=== PATIENT | male | born 1950 | race Caucasian/White ===

== ENCOUNTER 2017-04-18 11:49 | Inpatient (IN) | payer OTHER ==
[~2017-04-18] VITALS: Ht 177.8 cm; Wt 120.3 kg
[2017-04-18] MEDS ORDERED: SODIUM CHLORIDE 0.9% 1000ML 2,000 ML IV STA (12:09)
[2017-04-18] MEDS ORDERED: ONDANSETRON INJ 2 MG/ML 2 ML VIAL IV STA (12:09)
[2017-04-18] MEDS ORDERED: KETOROLAC TROMETHAMINE 30 MG/ML VIAL IV STA (12:12)
[2017-04-18 12:37] LABS: HEMATOCRIT 39.5 % (42-52); MEAN CELL VOLUME 86.2 fL (80-100); MEAN CORPUSCULAR HEMOGLOBIN 29.7 pg (25-34); MEAN CORPUSCULAR HGB CONC 34.4 g/dl (32-36); MEAN PLATELET VOLUME 11.1 fL (7.4-10.4); RED BLOOD COUNT 4.58 M/uL (4.7-6.1); WHITE BLOOD COUNT 3.78 K/uL (4.8-10.8)
[2017-04-18 12:38] LABS: URINE APPEARANCE CLEAR (CLEAR); URINE BILIRUBIN NEG (NEG); URINE COLOR DK YELLOW; URINE NITRITE NEG (NEG); URINE SPECIFIC GRAVITY 1.038 (1.000-1.030); UROBILINOGEN NEG (NEG)
--- NOTE | 2017-04-18 12:49 | DIAGNOSTIC IMAGING REPORT ---
HEAD WITHOUT CONTRAST (CT) CLINICAL HISTORY: 66 years-old Male with KAUR. Acute headache with cough and dizziness. TECHNIQUE: Multiple axial CT images of the head were obtained without contrast. A dose lowering technique was utilized adhering to the principles of ALARA. CT DOSE: 537.48 mGy.cm COMPARISON: None. FINDINGS: No acute intracranial hemorrhage, midline shift, intracranial mass, hydrocephalus, territorial ischemia or abnormal extra-axial collection. Mild atrophy. Subtle Ill-defined areas of low attenuation within the periventricular white matter suggests mild chronic microvascular ischemic changes. The calvarium is intact. The paranasal sinuses, mastoid air cells, and middle ear cavities are clear. IMPRESSION: No acute intracranial abnormality. The above report was generated using voice recognition software. It may contain grammatical, syntax or spelling errors. Electronically signed by: Nikunj Caruso M.D. 04/18/2017 12:48 PM Dictated Date/Time: 04/18/2017 12:45 PM
[2017-04-18 12:50] LABS: BUN/CREATININE RATIO 13.3 (10-20); CALCIUM 8.5 mg/dl (8.5-10.1); CREATININE 1.03 mg/dl (0.60-1.40); POTASSIUM 3.8 mmol/L (3.5-5.1)
[2017-04-18 12:57] LABS: MANUAL MICROSCOPIC REQUIRED? NO; REVIEW REQ? YES
[2017-04-18 13:09] LABS: ZZUR CULT IF INDIC CLEAN CATCH NO
--- NOTE | 2017-04-18 13:18 | DIAGNOSTIC IMAGING REPORT ---
CHEST 2 VIEWS ROUTINE HISTORY: 66 years-old Male cough acute cough with headache COMPARISON: None available TECHNIQUE: PA and lateral views of the chest FINDINGS: Cardiac silhouette is mildly enlarged. No overt pulmonary edema. There is no pneumothorax or large pleural effusion. Subsegmental consolidation of the inferior segment lingula is noted. Bones of the chest are grossly intact. There are degenerative changes of the shoulders and spine. IMPRESSION: Subsegmental alveolar opacities of the inferior segment lingula are suspicious for pneumonia or atelectasis. The lungs are otherwise clear. The above report was generated using voice recognition software. It may contain grammatical, syntax or spelling errors. Electronically signed by: Nikunj Caruso M.D. 04/18/2017 1:17 PM Dictated Date/Time: 04/18/2017 1:15 PM
[2017-04-18 13:25] LABS: PLATELET COUNT 75 K/uL (130-400)
[2017-04-18] MEDS ORDERED: GLUC100014 PO (13:29)
[2017-04-18] MEDS ORDERED: AMLO-110 PO (13:29)
[2017-04-18] MEDS ORDERED: LISI20TA3 PO (13:29)
[2017-04-18] MEDS ORDERED: NAPR1TAB9 PO (13:29)
[2017-04-18] MEDS ORDERED: CYAN10004 PO (13:29)
[2017-04-18] MEDS ORDERED: PYRI100T4 PO (13:29)
[2017-04-18] MEDS ORDERED: ASPI81TA28 PO (13:29)
[2017-04-18] MEDS ORDERED: OMEG10007 PO (13:29)
[2017-04-18] MEDS ORDERED: AMOX875T PO (13:29)
[2017-04-18] MEDS ORDERED: LEVAQUIN 750MG / 150ML D5W IV STA (13:37)
[2017-04-18 13:40] LABS: IG% 0.5 %; LYMPH % 4.8 %; LYMPH ABS # 0.18 K/uL (1.2-3.4); MONO % 3.4 %; NEUT % 91.3 %
[2017-04-18 13:59] LABS: COMPLETE YES; LARGE PLATELETS 1+; PLT ESTIMATE DECREASED
[2017-04-18] MEDS ORDERED: DOXYCYCLINE IV 100 MG in DEXTROSE 5% 100ML 100 ML IV SCH (14:00)
[2017-04-18] MEDS ORDERED: ONDANSETRON INJ 2 MG/ML 2 ML VIAL IV PRN (14:45)
[2017-04-18] MEDS ORDERED: POLYETHYLENE (MIRALAX) 17 GM PACK PO PRN (14:45)
--- NOTE | 2017-04-18 15:09 | History and Physical ---
History & Physical Date & Time of Service: Apr 18, 2017 at 14:44 Chief Complaint: Uncontrollable Shaking,Severe Headache Primary Care Physician: Aftab Cortez M.D. History of Present Illness Source: patient, spouse, hospital records The patient is a 66 yo M with HTN who presents with reports of a persistent headache x 2 days and shaking chills overnight. He reports that his pulled a tick off of him about 7-10 days ago and he had gone hunting that same day which was likely his exposure as he feels he would have noticed something. He hunts frequently. He separately reports a cough for 3 weeks now and significant fatigue even prior to the tick bite. He denies any myalgia or arthralgia and although there was an initial site of erythema he did not develop a rash. He had some nausea in the last few days but no vomiting and is tolerating PO without difficulty. He otherwise denies any other major medical problems and had an elective hernia repair in July of this year. He gets his care in [place]. Since arriving to the ER he has been given doxycycline, Levaquin, 2L NS, Toradol and Zofran and states that he feels much better already. He is not ill-appearing. Dr. Haynes from the ER states that he spoke with the pathologist who saw an Anaplasma inclusion body on peripheral smear. Past Medical/Surgical History Medical Problems: (1) HTN (hypertension) Status: Chronic Surgical Problems: (1) S/P herniorrhaphy Status: Chronic Family History FH: HTN (hypertension) FATHER FH: diabetes mellitus MOTHER Social History Smoking Status: Never Smoker Smokeless Tobacco Use: Yes Alcohol Use: occasionally Drug Use: none Marital Status: Housing status: lives with significant other Occupational Status: retired Immunizations History of Influenza Vaccine: Unknown History of Tetanus Vaccine?: Unknown History of Pneumococcal: Unknown History of Hepatitis B Vaccine: Unknown Multi-Drug Resistant Organisms History of MDRO: No Allergies Coded Allergies: No Known Allergies (Unverified , 04/18/17) Home Medications Scheduled Amlodipine (Norvasc), 5 MG PO QAM Amoxicillin & Pot Clavulanate (Augmentin 875-125 mg), 1 TAB PO Q12 Lisinopril (Prinivil), 20 MG PO QAM Scheduled PRN Naproxen (Aleve), 220 MG PO UD PRN for Pain Review of Systems At least ten systems were reviewed and negative except as indicated in HPI. Physical Exam Vital Signs Date Time Temp Pulse Resp B/P (MAP) Pulse Ox O2 Delivery O2 Flow Rate FiO2 04/18/17 13:42 76 18 115/73 97 04/18/17 11:55 37.2 91 16 140/72 96 Room Air General Appearance: no apparent distress, + obese Head: normocephalic, atraumatic Eyes: normal inspection, sclerae normal ENT: hearing grossly normal, pharynx normal Neck: trachea midline Respiratory/Chest: lungs clear, normal breath sounds, no respiratory distress Cardiovascular: regular rate, rhythm, no edema, no gallop, no JVD, no murmur Abdomen/GI: normal bowel sounds, non tender, soft Back: normal inspection Extremities/Musculoskelatal: normal inspection, no pedal edema, normal range of motion, + pertinent finding (5/5 strength in UE/LE and housekeeping/laundry supervisor strength) Neurologic/Psych: no motor/sensory deficits, alert, normal mood/affect, oriented x 3, + pertinent finding (CN 2-12 grossly intact) Skin: normal color, warm/dry, no rash, + pertinent finding (small scab with no surrounding erythema present at prior tick bite location. ) Diagnostics Laboratory Results 04/18/17 12:19 Red Blood Count 4.58, Mean Corpuscular Volume 86.2, Mean Corpuscular Hemoglobin 29.7, Mean Corpuscular Hemoglobin Concent 34.4, Mean Platelet Volume 11.1, Neutrophils (%) (Auto) 91.3, Lymphocytes (%) (Auto) 4.8, Monocytes (%) (Auto) 3.4, Eosinophils (%) (Auto) 0.0, Basophils (%) (Auto) 0.0, Neutrophils # (Auto) 3.45, Lymphocytes # (Auto) 0.18, Monocytes # (Auto) 0.13, Eosinophils # (Auto) 0.00, Basophils # (Auto) 0.00 04/18/17 12:19 Test 04/18/17 12:19 White Blood Count 3.78 K/uL (4.8-10.8) Red Blood Count 4.58 M/uL (4.7-6.1) Hemoglobin 13.6 g/dL (14.0-18.0) Hematocrit 39.5 % (42-52) Mean Corpuscular Volume 86.2 fL (80-100) Mean Corpuscular Hemoglobin 29.7 pg (25-34) Mean Corpuscular Hemoglobin Concent 34.4 g/dl (32-36) Platelet Count 75 K/uL (130-400) Mean Platelet Volume 11.1 fL (7.4-10.4) Neutrophils (%) (Auto) 91.3 % Lymphocytes (%) (Auto) 4.8 % Monocytes (%) (Auto) 3.4 % Eosinophils (%) (Auto) 0.0 % Basophils (%) (Auto) 0.0 % Neutrophils # (Auto) 3.45 K/uL (1.4-6.5) Lymphocytes # (Auto) 0.18 K/uL (1.2-3.4) Monocytes # (Auto) 0.13 K/uL (0.11-0.59) Eosinophils # (Auto) 0.00 K/uL (0-0.5) Basophils # (Auto) 0.00 K/uL (0-0.2) RDW Standard Deviation 39.9 fL (36.4-46.3) RDW Coefficient of Variation 12.6 % (11.5-14.5) Immature Granulocyte % (Auto) 0.5 % Immature Granulocyte # (Auto) 0.02 K/uL (0.00-0.02) Platelet Estimate DECREASED Large Platelets 1+ Urine Color DK YELLOW Urine Appearance CLEAR (CLEAR) Urine pH 5.0 (4.5-7.5) Urine Specific [place] 1.038 (1.000-1.030) Urine Protein 2+ (NEG) Urine Glucose (UA) 1+ (NEG) Urine Ketones TRACE (NEG) Urine Occult Blood NEG (NEG) Urine Nitrite NEG (NEG) Urine Bilirubin NEG (NEG) Urine Urobilinogen NEG (NEG) Urine Leukocyte Esterase NEG (NEG) Urine WBC (Auto) 1-5 /hpf (0-5) Urine RBC (Auto) 0-4 /hpf (0-4) Urine Hyaline Casts (Auto) 1-5 /lpf (0-5) Urine Epithelial Cells (Auto) 10-20 /lpf (0-5) Urine Bacteria (Auto) NEG (NEG) Urine Pathogenic Casts /lpf (0) Urine Yeast (Auto) (NONE PRSENT) Anion Gap 5.0 mmol/L (3-11) Est Creatinine Clear Calc Drug Dose 90.5 ml/min Estimated GFR () 86.7 Estimated GFR (Non- 74.8 BUN/Creatinine Ratio 13.3 (10-20) Calcium Level 8.5 mg/dl (8.5-10.1) Total Bilirubin 0.4 mg/dl (0.2-1) Direct Bilirubin 0.1 mg/dl (0-0.2) Aspartate Amino Transf (AST/SGOT) 69 U/L (15-37) Alanine Aminotransferase (ALT/SGPT) 68 U/L (12-78) Alkaline Phosphatase 64 U/L (45-117) Total Protein 6.8 gm/dl (6.4-8.2) Albumin 3.3 gm/dl (3.4-5.0) Lipase 227 U/L (73-393) Influenza Type A Antigen Neg for Influ A (NEG) Influenza Type B Antigen Neg for Influ B (NEG) Results Past 24 Hours Test 04/18/17 12:19 Range/Units White Blood Count 3.78 4.8-10.8 K/uL Red Blood Count 4.58 4.7-6.1 M/uL Hemoglobin 13.6 14.0-18.0 g/dL Hematocrit 39.5 42-52 % Mean Corpuscular Volume 86.2 80-100 fL Mean Corpuscular Hemoglobin 29.7 25-34 pg Mean Corpuscular Hemoglobin Concent 34.4 32-36 g/dl Platelet Count 75 130-400 K/uL Mean Platelet Volume 11.1 7.4-10.4 fL Neutrophils (%) (Auto) 91.3 % Lymphocytes (%) (Auto) 4.8 % Monocytes (%) (Auto) 3.4 % Eosinophils (%) (Auto) 0.0 % Basophils (%) (Auto) 0.0 % Neutrophils # (Auto) 3.45 1.4-6.5 K/uL Lymphocytes # (Auto) 0.18 1.2-3.4 K/uL Monocytes # (Auto) 0.13 0.11-0.59 K/uL Eosinophils # (Auto) 0.00 0-0.5 K/uL Basophils # (Auto) 0.00 0-0.2 K/uL RDW Standard Deviation 39.9 36.4-46.3 fL RDW Coefficient of Variation 12.6 11.5-14.5 % Immature Granulocyte % (Auto) 0.5 % Immature Granulocyte # (Auto) 0.02 0.00-0.02 K/uL Platelet Estimate DECREASED Large Platelets 1+ Urine Color DK YELLOW Urine Appearance CLEAR CLEAR Urine pH 5.0 4.5-7.5 Urine Specific [place] 1.038 1.000-1.030 Urine Protein 2+ NEG Urine Glucose (UA) 1+ NEG Urine Ketones TRACE NEG Urine Occult Blood NEG NEG Urine Nitrite NEG NEG Urine Bilirubin NEG NEG Urine Urobilinogen NEG NEG Urine Leukocyte Esterase NEG NEG Urine WBC (Auto) 1-5 0-5 /hpf Urine RBC (Auto) 0-4 0-4 /hpf Urine Hyaline Casts (Auto) 1-5 0-5 /lpf Urine Epithelial Cells (Auto) 10-20 0-5 /lpf Urine Bacteria (Auto) NEG NEG Urine Pathogenic Casts 0 /lpf Urine Yeast (Auto) NONE PRSENT Sodium Level 127 136-145 mmol/L Potassium Level 3.8 3.5-5.1 mmol/L Chloride Level 98 98-107 mmol/L Carbon Dioxide Level 24 21-32 mmol/L Anion Gap 5.0 3-11 mmol/L Blood Urea Nitrogen 14 7-18 mg/dl Creatinine 1.03 0.60-1.40 mg/dl Est Creatinine Clear Calc Drug Dose 90.5 ml/min Estimated GFR () 86.7 Estimated GFR (Non- 74.8 BUN/Creatinine Ratio 13.3 10-20 Random Glucose 150 70-99 mg/dl Calcium Level 8.5 8.5-10.1 mg/dl Total Bilirubin 0.4 0.2-1 mg/dl Direct Bilirubin 0.1 0-0.2 mg/dl Aspartate Amino Transf (AST/SGOT) 69 15-37 U/L Alanine Aminotransferase (ALT/SGPT) 68 12-78 U/L Alkaline Phosphatase 64 45-117 U/L Total Protein 6.8 6.4-8.2 gm/dl Albumin 3.3 3.4-5.0 gm/dl Lipase 227 73-393 U/L Influenza Type A Antigen Neg for Influ A NEG Influenza Type B Antigen Neg for Influ B NEG Diagnostic Radiology CHEST 2 VIEWS ROUTINE HISTORY: 66 years-old Male cough acute cough with headache COMPARISON: None available TECHNIQUE: PA and lateral views of the chest FINDINGS: Cardiac silhouette is mildly enlarged. No overt pulmonary edema. There is no pneumothorax or large pleural effusion. Subsegmental consolidation of the inferior segment lingula is noted. Bones of the chest are grossly intact. There are degenerative changes of the shoulders and spine. IMPRESSION: Subsegmental alveolar opacities of the inferior segment lingula are suspicious for pneumonia or atelectasis. The lungs are otherwise clear. HEAD WITHOUT CONTRAST (CT) CLINICAL HISTORY: 66 years-old Male with KAUR. Acute headache with cough and dizziness. TECHNIQUE: Multiple axial CT images of the head were obtained without contrast. A dose lowering technique was utilized adhering to the principles of ALARA. CT DOSE: 537.48 mGy.cm COMPARISON: None. FINDINGS: No acute intracranial hemorrhage, midline shift, intracranial mass, hydrocephalus, territorial ischemia or abnormal extra-axial collection. Mild atrophy. Subtle Ill-defined areas of low attenuation within the periventricular white matter suggests mild chronic microvascular ischemic changes. The calvarium is intact. The paranasal sinuses, mastoid air cells, and middle ear cavities are clear. IMPRESSION: No acute intracranial abnormality. EKG EKG pending Impression Assessment and Plan 66 yoM presents with collection of symptoms consistent with tick-borne illness and CAP 1. CAP-pt describes a cough for several weeks along with fatigue (prior to tick bite) and has lingular infiltrate on xray. Levaquin started. Blood cultures, sputum cultures. No hypoxia. 2. Rickettsial infection consistent with Anaplasma-pt describes a tick exposure in the last 7-10 days and presents with shaking chills, headache, malaise, nausea, cough with labs revealing thrombocytopenia and leukopenia along with peripheral smear findings consistent with Anaplasma. Doxy started and ID consulted. Will likely send for PCR but will review with ID systems security consultant first. Will consider sending tests to check for coinfection, also. 3. HTN-controlled on home meds including lisinopril 20mg daily and Norvasc 5 mg PO daily. DVT proph-contraindicated in setting of thrombocytopenia, SCDs were ordered Full Code Dispo-Med/Surg Abida Jason, DO [facility]ist Level of Care Med/Surg Resuscitation Status FULL RESUSCITATION VTE Prophylaxis VTE Risk Assessment Done? Y/N: Yes Risk Level: Moderate Given or contraindicated: SCD's, Contraindicated
[2017-04-18] MEDS ORDERED: DOXYCYCLINE IV 100 MG in DEXTROSE 5% 100ML 100 ML IV ONE (15:45)
[2017-04-18] MEDS: ACETAMINOPHEN 325 MG TAB PO PRN ×2 (16:30→22:18)
[2017-04-18 17:47] LABS: INR 1.2 (0.9-1.1); PROTHROMBIN TIME (PATIENT) 12.8 SECONDS (9.0-12.0)
[2017-04-18 18:05] LABS: CALCIUM 8.5 mg/dl (8.5-10.1); CREATININE 0.94 mg/dl (0.60-1.40); POTASSIUM 3.8 mmol/L (3.5-5.1)
[2017-04-18 18:22] LABS: LYME DISEASE AB IGG NEG (NEG); LYME DISEASE AB IGM NEG (NEG)
--- NOTE | 2017-04-18 18:38 | EMERGENCY ROOM VISIT NOTE ---
History Report prepared by Marta: Edu Odgen Under the Supervision of: Arline HillO. First contact with patient: 11:58 Chief Complaint: HEADACHE Stated Complaint: UNCONTROLLABLE SHAKING,SEVERE HEADACHE History of Present Illness The patient is a 66 year old male who presents to the Emergency Room with complaints of constant headache for the past two days and feels like his head is full. The patient currently rates his discomfort as an 8/10 in severity. The patient notes that last night he had severe chills and was shaking. He reports that he has pain around his eyes, his mouth is dry, he feels weak, he feels congested, and two days ago he was nauseous. He states that the pain is worsened with coughing. The patient denies any runny nose, sorethroat, chest pain, abdominal pain, vomiting, pain with urination, dizziness, confusion, and any new cough. He additionally notes that he has not been having his normal bowel movements, and he has been urinating less than normal. He additionally notes that he does not have any open cuts or injuries. The patient has a history of hypertension. Pt denies change in vision, fevers, shortness of breath , vomiting, diarrhea, and melena. Source of History: patient Onset: two days ago Position: head Quality: ache, other (fullness) Timing: constant Modifying Factors (Worsening): other (coughing) Associated Symptoms: + chills, + nausea, + weakness, No sorethroat, No cough , No chest pain, No vomiting, No urinary symptoms Note: Associated symptoms: Shaking and pain around his eyes Review of Systems See HPI for pertinent positives & negatives. A total of 10 systems reviewed and were otherwise negative. Past Medical & Surgical Medical Problems: (1) Fever (2) HTN (hypertension) (3) Pneumonia Surgical Problems: (1) S/P herniorrhaphy Social History Smoking Status: Never Smoker Marital Status: single Housing Status: lives alone Occupation Status: retired Current/Historical Medications Scheduled Amlodipine (Norvasc), 5 MG PO QAM Amoxicillin & Pot Clavulanate (Augmentin 875-125 mg), 1 TAB PO Q12 Lisinopril (Prinivil), 20 MG PO QAM Scheduled PRN Naproxen (Aleve), 220 MG PO UD PRN for Pain Allergies Coded Allergies: No Known Allergies (Unverified , 04/18/17) Physical Exam Vital Signs Date Time Temp Pulse Resp B/P (MAP) Pulse Ox O2 Delivery O2 Flow Rate FiO2 04/18/17 13:42 76 18 115/73 97 04/18/17 11:55 37.2 91 16 140/72 96 Room Air Physical Exam GENERAL: Sitting on the edge of the bed, disheveled non-toxic. HEAD: Tenderness over the maxillary sinuses. EARS: TMs boone bilaterally. EYE EXAM: normal conjunctiva. PERRL and EOM's grossly intact. OROPHARYNX: no exudate, no erythema, lips, buccal mucosa, and tongue normal and mucous membranes are dry NECK: supple, no nuchal rigidity, no adenopathy, non-tender LUNGS: Clear to auscultation. Normal chest wall mechanics HEART: no murmurs, S1 normal and S2 normal ABDOMEN: abdomen soft, non-tender, normo-active bowel sounds, no masses, no rebound or guarding. BACK: Back is symmetrical on inspection and there is no deformity, no midline tenderness, no CVA tenderness. SKIN: no rashes and no bruising UPPER EXTREMITIES: upper extremities are grossly normal. LOWER EXTREMITIES: No pitting edema. NEURO EXAM: Normal sensorium, cranial nerves II-XII intact, normal speech, no weakness of arms, no weakness of legs. No drift. Finger to nose intact. Sensation intact. Medical Decision & Procedures ER Provider Diagnostic Interpretation: Radiology results as stated below per my review and the radiologist's interpretation: HEAD WITHOUT CONTRAST (CT) CLINICAL HISTORY: 66 years-old Male with KAUR. Acute headache with cough and dizziness. TECHNIQUE: Multiple axial CT images of the head were obtained without contrast. A dose lowering technique was utilized adhering to the principles of ALARA. CT DOSE: 537.48 mGy.cm COMPARISON: None. FINDINGS: No acute intracranial hemorrhage, midline shift, intracranial mass, hydrocephalus, territorial ischemia or abnormal extra-axial collection. Mild atrophy. Subtle Ill-defined areas of low attenuation within the periventricular white matter suggests mild chronic microvascular ischemic changes. The calvarium is intact. The paranasal sinuses, mastoid air cells, and middle ear cavities are clear. IMPRESSION: No acute intracranial abnormality. The above report was generated using voice recognition software. It may contain grammatical, syntax or spelling errors. Electronically signed by: Nikunj Caruso M.D. 04/18/2017 12:48 PM Dictated Date/Time: 04/18/2017 12:45 PM CHEST 2 VIEWS ROUTINE HISTORY: 66 years-old Male cough acute cough with headache COMPARISON: None available TECHNIQUE: PA and lateral views of the chest FINDINGS: Cardiac silhouette is mildly enlarged. No overt pulmonary edema. There is no pneumothorax or large pleural effusion. Subsegmental consolidation of the inferior segment lingula is noted. Bones of the chest are grossly intact. There are degenerative changes of the shoulders and spine. IMPRESSION: Subsegmental alveolar opacities of the inferior segment lingula are suspicious for pneumonia or atelectasis. The lungs are otherwise clear. The above report was generated using voice recognition software. It may contain grammatical, syntax or spelling errors. Electronically signed by: Nikunj Caruso M.D. 04/18/2017 1:17 PM Dictated Date/Time: 04/18/2017 1:15 PM Laboratory Results 04/18/17 12:19 Red Blood Count 4.58, Mean Corpuscular Volume 86.2, Mean Corpuscular Hemoglobin 29.7, Mean Corpuscular Hemoglobin Concent 34.4, Mean Platelet Volume 11.1, Neutrophils (%) (Auto) 91.3, Lymphocytes (%) (Auto) 4.8, Monocytes (%) (Auto) 3.4, Eosinophils (%) (Auto) 0.0, Basophils (%) (Auto) 0.0, Neutrophils # (Auto) 3.45, Lymphocytes # (Auto) 0.18, Monocytes # (Auto) 0.13, Eosinophils # (Auto) 0.00, Basophils # (Auto) 0.00 Test 04/18/17 12:19 White Blood Count 3.78 K/uL (4.8-10.8) Red Blood Count 4.58 M/uL (4.7-6.1) Hemoglobin 13.6 g/dL (14.0-18.0) Hematocrit 39.5 % (42-52) Mean Corpuscular Volume 86.2 fL (80-100) Mean Corpuscular Hemoglobin 29.7 pg (25-34) Mean Corpuscular Hemoglobin Concent 34.4 g/dl (32-36) Platelet Count 75 K/uL (130-400) Mean Platelet Volume 11.1 fL (7.4-10.4) Neutrophils (%) (Auto) 91.3 % Lymphocytes (%) (Auto) 4.8 % Monocytes (%) (Auto) 3.4 % Eosinophils (%) (Auto) 0.0 % Basophils (%) (Auto) 0.0 % Neutrophils # (Auto) 3.45 K/uL (1.4-6.5) Lymphocytes # (Auto) 0.18 K/uL (1.2-3.4) Monocytes # (Auto) 0.13 K/uL (0.11-0.59) Eosinophils # (Auto) 0.00 K/uL (0-0.5) Basophils # (Auto) 0.00 K/uL (0-0.2) RDW Standard Deviation 39.9 fL (36.4-46.3) RDW Coefficient of Variation 12.6 % (11.5-14.5) Immature Granulocyte % (Auto) 0.5 % Immature Granulocyte # (Auto) 0.02 K/uL (0.00-0.02) Platelet Estimate DECREASED Large Platelets 1+ Urine Color DK YELLOW Urine Appearance CLEAR (CLEAR) Urine pH 5.0 (4.5-7.5) Urine Specific [place] 1.038 (1.000-1.030) Urine Protein 2+ (NEG) Urine Glucose (UA) 1+ (NEG) Urine Ketones TRACE (NEG) Urine Occult Blood NEG (NEG) Urine Nitrite NEG (NEG) Urine Bilirubin NEG (NEG) Urine Urobilinogen NEG (NEG) Urine Leukocyte Esterase NEG (NEG) Urine WBC (Auto) 1-5 /hpf (0-5) Urine RBC (Auto) 0-4 /hpf (0-4) Urine Hyaline Casts (Auto) 1-5 /lpf (0-5) Urine Epithelial Cells (Auto) 10-20 /lpf (0-5) Urine Bacteria (Auto) NEG (NEG) Urine Pathogenic Casts /lpf (0) Urine Yeast (Auto) (NONE PRSENT) Total Bilirubin 0.4 mg/dl (0.2-1) Direct Bilirubin 0.1 mg/dl (0-0.2) Aspartate Amino Transf (AST/SGOT) 69 U/L (15-37) Alanine Aminotransferase (ALT/SGPT) 68 U/L (12-78) Alkaline Phosphatase 64 U/L (45-117) Total Protein 6.8 gm/dl (6.4-8.2) Albumin 3.3 gm/dl (3.4-5.0) Lipase 227 U/L (73-393) Influenza Type A Antigen Neg for Influ A (NEG) Influenza Type B Antigen Neg for Influ B (NEG) Laboratory results per my review. Medications Administered Medications (Trade) Dose Ordered Sig/Reji Route Start Time Stop Time Status Last Admin Dose Admin Sodium Chloride 2,000 ml @ 999 mls/hr Q2H1M STAT IV 04/18/17 12:09 04/18/17 14:09 DC 04/18/17 12:27 999 MLS/HR Ondansetron HCl (Zofran Inj) 4 mg NOW STAT IV 04/18/17 12:09 04/18/17 12:11 DC 04/18/17 12:27 4 MG Ketorolac Tromethamine (Toradol Inj) 10 mg NOW STAT IV 04/18/17 12:12 04/18/17 12:13 DC 04/18/17 12:28 10 MG Levofloxacin (Levaquin / D5W) 750 mg NOW STAT IV 04/18/17 13:37 04/18/17 13:38 DC 04/18/17 13:47 750 MG ED Course ED COURSE: Vital signs were reviewed and showed normal vitals The patients medical record was reviewed The above diagnostic studies were performed and reviewed. ED treatments and interventions as stated above. 1158: The patient was evaluated in room A10. A complete history and physical examination was performed. 1209: Zofran 4mg IV, Sodium Chloride 2000 ml @ 999 mls/hr IV 1212: Toradol 10mg IV 1337: Levofloxacin 750mg IV 1400: Upon reevaluation, the patient is doing well.I discussed my findings with the patient and he understands and agrees with the treatment plan. Based on the patients age, coexisting illnesses, exam and lab findings the decision to treat as an inpatient was made. The patient remained stable while under my care. The patient will be evaluated for further management. 1406: I discussed the patient's case with Jamaal Olson, and she is going to evaluate the patient for further management Medical Decision Differential Diagnosis includes but is not limited to dehydration, stroke, anemia, hypoglycemia, hyponatremia, hypernatremia, urinary tract infection, pneumonia, bronchitis, sepsis, gastroenteritis, additional abdominal pathology, metabolic abnormalities and infections. Patient is a 66-year-old male who presents to ER for cough associated with chills and diffuse weakness. Patient doesn't headache as well. No nuchal rigidity to suggest meningitis. Patient completely neurologically intact. Chest x-ray supports a pneumonia with a questionable cough. CBC shows a leukopenia with anaplasmosis. Thrombocytopenia also present. BMP shows a moderate hyponatremia at 127. UA was negative. Favor symptoms are multifactorial which is a combination of anaplasmosis and pneumonia. Patient was given IV doxycycline and Levaquin. Patient was admitted to internal medicine. Medication Reconcilliation Current Medication List: was personally reviewed by me Blood Pressure Screening Patient's blood pressure: Normal blood pressure Consults Time Called: 1354 Consulting Physician: Jamaal Olson Returned Call: [phone] I discussed the patient's case with Jamaal Olson, and she is going to evaluate the patient for further management. Impression Primary Impression: Anaplasmosis Additional Impressions: Pneumonia Thrombocytopenia Hyponatremia Scribe Attestation The scribe's documentation has been prepared under my direction and personally reviewed by me in its entirety. I confirm that the note above accurately reflects all work, treatment, procedures, and medical decision making performed by me. Departure Information Dispostion Being Evaluated By Hospitalist Aftab Steinberg M.D. (PCP) Patient Instructions My [facility] Problem Qualifiers Additional Impressions: Pneumonia Pneumonia type: due to unspecified organism Laterality: unspecified laterality Lung location: unspecified part of lung Qualified Codes: J18.9 - Pneumonia, unspecified organism
[2017-04-18 19:45] VITALS: O2SAT 96
[2017-04-18 19:51] VITALS: O2SAT 96; BMI 38.1
[2017-04-18 22:18] VITALS: BP 106/63; PULSE 92; TEMP 38; O2SAT 96
[2017-04-18 23:25] VITALS: BP 155/73; PULSE 102; TEMP 37.6; O2SAT 95
[2017-04-19] VITALS (9 sets, daily range): BP systolic 119–143; BP diastolic 73–76; PULSE 61–90; TEMP 36.8–37.7; O2SAT 96–98
[2017-04-19] MEDS: DOXYCYCLINE IV 100 MG in DEXTROSE 5% 100ML 100 ML IV SCH ×2 (03:43→16:41)
[2017-04-19 07:49] LABS: HEMATOCRIT 38.6 % (42-52); MEAN CELL VOLUME 86.2 fL (80-100); MEAN CORPUSCULAR HEMOGLOBIN 29.2 pg (25-34); MEAN CORPUSCULAR HGB CONC 33.9 g/dl (32-36); RED BLOOD COUNT 4.48 M/uL (4.7-6.1)
[2017-04-19 08:17] LABS: MEAN PLATELET VOLUME 12.2 fL (7.4-10.4); PLATELET COUNT 48 K/uL (130-400)
[2017-04-19 08:18] LABS: PLT ESTIMATE DECREASED
[2017-04-19 08:30] LABS: BUN/CREATININE RATIO 15.6 (10-20); CALCIUM 8.4 mg/dl (8.5-10.1); CREATININE 0.96 mg/dl (0.60-1.40); POTASSIUM 3.9 mmol/L (3.5-5.1)
[2017-04-19] MEDS: LISINOPRIL 20 MG TAB PO SCH (08:50)
[2017-04-19] MEDS: AMLODIPINE BESYLATE 5 MG TAB PO SCH (08:51)
[2017-04-19] MEDS: NSS + 20MEQ KCL 1000ML 1,000 ML IV SCH (09:41)
[2017-04-19] MEDS: ACETAMINOPHEN 325 MG TAB PO PRN ×2 (09:43→17:40)
--- NOTE | 2017-04-19 09:48 | Progress Note ---
Progress Note Date of Service Apr 19, 2017. Progress Note ID Consult Dictated #[id number] A/P: 1. Anaplasmosis Continue doxy, can stop levaquin from ID standpoint
--- NOTE | 2017-04-19 10:07 | INFECT. DISEASE CONSULTATION ---
DATE OF CONSULTATION: 04/19/2017 REQUESTING PHYSICIAN: Dr. Cruz. HISTORY OF PRESENT ILLNESS: This is a 66-year-old gentleman who was admitted with worsening headache and fevers. He states that he was on his way home from a foot appointment in [place] and had a significant shaking chills. He continued to have fevers and was brought to the hospital after that. He has had persistent fever since admission with a T-max of 38. He was also found to be leukopenic with a mild elevation of his AST at 69. He did have a chest x-ray in the ER which showed a questionable lingular infiltrate versus atelectasis. He does not have any pulmonary symptoms other than some nasal congestion. He does wear CPAP at night and had some improvement last evening with this. Per the history, he did recently remove a tick about 10 days ago. He did have a peripheral smear obtained and it showed Anaplasma. He was started on doxycycline. He was also given Levaquin for questionable pneumonia. He states he is feeling somewhat better today but still complains of significant fatigue. He denies any fevers overnight, although he did have temperature of 37.7. He denies any chest pain, cough or shortness of breath. He has no nausea, vomiting or diarrhea. He denies any rashes, arthralgias or myalgias. His remaining review of systems is unremarkable. PAST MEDICAL HISTORY: Significant for hypertension. PAST SURGICAL HISTORY: Significant for hernia repair. FAMILY HISTORY: Noncontributory. SOCIAL HISTORY: Negative for tobacco use, alcohol use or drug use. ALLERGIES: He has no known drug allergies. MEDICATIONS: Include Levaquin, Norvasc, lisinopril, doxycycline, Tylenol, MiraLax and Zofran. PHYSICAL EXAMINATION: VITAL SIGNS: He is currently 37.7, his T-max is 38, pulse 90, respiratory rate 18, blood pressure 143/74, and oxygen saturation is 97% on room air. GENERAL: He is awake, alert and oriented x3. He is in no acute distress. HEENT: Mucous membranes are moist. Extraocular muscles are intact. HEART: Regular. LUNGS: Clear bilaterally. ABDOMEN: Soft, nontender, nondistended. There is no edema bilaterally. SKIN: Without rash. LABORATORY STUDIES: CBC today reveals a white blood cell count of 2.4, hemoglobin 13.1 and platelets are 48. Chemistry panel reveals a sodium of 134, potassium 3.9, chloride 101, bicarbonate 27, BUN 15, creatinine 0.9, glucose is 110. AST 69, ALT is 68. UA was negative. Flu swab is negative. Lyme disease titer is negative. Anaplasma antibodies are pending. Blood cultures are pending. IMAGING: As above. ASSESSMENT AND PLAN: Anaplasma, so he should remain on doxycycline. I doubt pneumonia by clinical history; however, if there is a community-acquired pneumonia, doxycycline will be adequate for this. From an infectious diseases standpoint Levaquin can be discontinued. Thank you for this consultation.
[2017-04-19] MEDS ORDERED: LEVOFLOXACIN / D5W 750 MG in PREMIXED IN D5W 150 ML IV SCH (11:00)
[2017-04-19] MEDS ORDERED: NURSING VERBAL MED ORDER ONE ×2 (12:30→20:15)
[2017-04-19] MEDS ORDERED: SODIUM CHLORIDE 0.65% NA SOLN 45 ML (OCEAN) PRN (12:30)
--- NOTE | 2017-04-19 19:17 | Progress Note ---
Medicine Progress Note Date & Time of Visit: Apr 19, 2017 at 19:13. Subjective seen resting in bed, not in distress states he feels somewhat better less headache and fatigue no cough, dyspnea , abdominal pain, chest pain, palpitations, dizziness no bleeding denies other symptoms Objective Last 8 Hrs Date Time Temp Pulse Resp B/P (MAP) Pulse Ox O2 Delivery O2 Flow Rate FiO2 04/19/17 16:17 96 Room Air 04/19/17 15:25 36.8 77 18 125/76 (92) 98 Room Air Physical Exam: General- oriented x 3, not in distress, speaks in sentences with no effort Head- atraumatic Eyes- PERRL, EOMI, anicteric ENT- oropharynx clear Neck- supple, no JVD, no adenopathy, no thyromegaly; carotids +2/2 Lungs- clear to auscultation bilaterally Heart- regular rhythm; no murmurs, normal rate Abdomen- normal bowel sounds, soft, nontender Extremities- no pretibial edema, no calf tenderness; peripheral pulses intact Neuro- alert, oriented x 3; no gross focal deficits Skin- warm & dry Laboratory Results: Last 24 Hours Test 04/19/17 07:18 White Blood Count 2.40 K/uL Red Blood Count 4.48 M/uL Hemoglobin 13.1 g/dL Hematocrit 38.6 % Mean Corpuscular Volume 86.2 fL Mean Corpuscular Hemoglobin 29.2 pg Mean Corpuscular Hemoglobin Concent 33.9 g/dl RDW Standard Deviation 39.5 fL RDW Coefficient of Variation 12.4 % Platelet Count 48 K/uL Mean Platelet Volume 12.2 fL Platelet Estimate DECREASED Sodium Level 134 mmol/L Potassium Level 3.9 mmol/L Chloride Level 101 mmol/L Carbon Dioxide Level 27 mmol/L Anion Gap 6.0 mmol/L Blood Urea Nitrogen 15 mg/dl Creatinine 0.96 mg/dl Est Creatinine Clear Calc Drug Dose 97.1 ml/min Estimated GFR () 94.4 Estimated GFR (Non- 81.5 BUN/Creatinine Ratio 15.6 Random Glucose 110 mg/dl Calcium Level 8.4 mg/dl Assessment & Plan 66 yoM presents with collection of symptoms consistent with tick-borne illness and CAP POSSIBLE ANAPLASMOSIS - symptoms seem to be improving although CBC decreasing - continue Doxycycline ID consulted POSSIBLE PNEUMONIA - CXR: IMPRESSION: Subsegmental alveolar opacities of the inferior segment lingula are suspicious for pneumonia or atelectasis. The lungs are otherwise clear. - on Levaquin HTN-controlled on home meds including lisinopril 20mg daily and Norvasc 5 mg PO daily. DVT proph-contraindicated in setting of thrombocytopenia, SCDs were ordered Full Code Dispo anticipate d/c home when medically stable Current Inpatient Medications: Current Inpatient Medications Medications (Trade) Dose Ordered Sig/Reji Route Start Time Stop Time Status Last Admin Dose Admin Acetaminophen (Tylenol Tab) 650 mg Q4H PRN PO 04/18/17 14:45 05/18/17 14:44 04/19/17 17:40 650 MG Polyethylene (Miralax Powder Packet) 17 gm DAILY PRN PO 04/18/17 14:45 05/18/17 14:44 Ondansetron HCl (Zofran Inj) 4 mg Q6H PRN IV 04/18/17 14:45 05/18/17 14:44 Amlodipine Besylate (Norvasc Tab) 5 mg QAM PO 04/19/17 09:00 05/19/17 08:59 04/19/17 08:51 5 MG Lisinopril (Zestril Tab) 20 mg QAM PO 04/19/17 09:00 05/19/17 08:59 04/19/17 08:50 20 MG Doxycycline Hyclate 100 mg/ Dextrose 110 ml @ 50 mls/hr Q12H IV 04/19/17 04:00 05/02/17 15:59 04/19/17 16:41 50 MLS/HR Levofloxacin 750 mg/Prmx 150 ml @ 100 mls/hr DAILY@1100 IV 04/19/17 11:00 04/25/17 10:59 04/19/17 11:53 100 MLS/HR Potassium Chloride/Sodium Chloride 1,000 ml @ 80 mls/hr [id number] IV 04/19/17 07:45 05/19/17 07:44 04/19/17 09:41 80 MLS/HR Sodium Chloride ([place] Nasal [place]) 2 sprays PRN PRN NA 04/19/17 12:30 05/19/17 12:29
[2017-04-20] VITALS: O2SAT 97
[2017-04-20] MEDS: NSS + 20MEQ KCL 1000ML 1,000 ML IV SCH ×2 (03:31→22:01)
[2017-04-20] MEDS: DOXYCYCLINE IV 100 MG in DEXTROSE 5% 100ML 100 ML IV SCH ×2 (03:32→15:57)
[2017-04-20 06:15] LABS: HEMATOCRIT 38.1 % (42-52); MEAN CELL VOLUME 85.4 fL (80-100); MEAN CORPUSCULAR HEMOGLOBIN 29.8 pg (25-34); MEAN CORPUSCULAR HGB CONC 34.9 g/dl (32-36); RED BLOOD COUNT 4.46 M/uL (4.7-6.1); WHITE BLOOD COUNT 3.84 K/uL (4.8-10.8)
[2017-04-20 06:18] LABS: MEAN PLATELET VOLUME 11.9 fL (7.4-10.4); PLATELET COUNT 54 K/uL (130-400)
[2017-04-20 06:44] LABS: COMPLETE YES; ECHINOCYTES 1+; LARGE PLATELETS 1+; LYMPHOCYTE % 15.6 %; NEUTROPHILS % 57.8 %; VARIANT LYM ABS # 0.67 K/uL; VARIANT LYMPHOCYTE % 17.4 %
[2017-04-20 06:54] LABS: BUN/CREATININE RATIO 15.9 (10-20); CALCIUM 8.7 mg/dl (8.5-10.1); CREATININE 0.83 mg/dl (0.60-1.40); POTASSIUM 3.7 mmol/L (3.5-5.1)
[2017-04-20 06:59] VITALS: BP 144/82; PULSE 79; TEMP 36.7; O2SAT 95
[2017-04-20 08:10] VITALS: O2SAT 96
[2017-04-20 08:41] LABS: ESTIMATED AVERAGE GLUCOSE 126 mg/dl; HA1C FLAG Normal (Normal)
[2017-04-20] MEDS: AMLODIPINE BESYLATE 5 MG TAB PO SCH (08:54)
[2017-04-20] MEDS: LISINOPRIL 20 MG TAB PO SCH (08:54)
--- NOTE | 2017-04-20 11:07 | Progress Note ---
Subjective Date of Service: Apr 20, 2017. Subjective Pt evaluation today including: conversation w/ patient, physical exam, chart review, lab review pt feeling better today, but still not to baseline. afebrile. blood cultures negative. tolerating abx. no cough, sob, chest pain. energy better, walking in hallway. wbc improving, platelets improving. all remaining ros reviewed and are negative. Problem List Medical Problems: (1) Anaplasmosis Status: Acute (2) Hyponatremia Status: Acute (3) Thrombocytopenia Status: Acute Objective Vital Signs Date Time Temp Pulse Resp B/P (MAP) Pulse Ox O2 Delivery O2 Flow Rate FiO2 04/20/17 08:10 96 Room Air 04/20/17 06:59 36.7 79 19 144/82 (102) 95 Room Air 04/20/17 00:00 97 Room Air 04/19/17 23:15 36.8 76 19 119/73 (88) 96 Room Air 04/19/17 22:41 61 97 04/19/17 20:25 96 Room Air 04/19/17 16:17 96 Room Air 04/19/17 15:25 36.8 77 18 125/76 (92) 98 Room Air Physical Exam General Appearance: WD/WN, no apparent distress Eyes: normal inspection, EOMI Neck: supple Respiratory/Chest: lungs clear, normal breath sounds, no respiratory distress Cardiovascular: regular rate, rhythm, no edema Abdomen: non tender, soft Extremities: non-tender, no pedal edema Neurologic/Psychiatric: alert, oriented x 3 Skin: normal color, no rash Laboratory Results Item Value Date Time Blood Culture - Preliminary Resulted 04/18/17 1725 Blood NO GROWTH TO DATE. Blood Culture - Preliminary Resulted 04/18/17 1718 Blood NO GROWTH TO DATE. Last 24 Hours Test 04/20/17 06:02 White Blood Count 3.84 K/uL Red Blood Count 4.46 M/uL Hemoglobin 13.3 g/dL Hematocrit 38.1 % Mean Corpuscular Volume 85.4 fL Mean Corpuscular Hemoglobin 29.8 pg Mean Corpuscular Hemoglobin Concent 34.9 g/dl Platelet Count 54 K/uL Mean Platelet Volume 11.9 fL RDW Standard Deviation 39.2 fL RDW Coefficient of Variation 12.5 % Neutrophils % (Manual) 57.8 % Lymphocytes % (Manual) 15.6 % Variant Lymphocytes % (manual) 17.4 % Monocytes % (Manual) 9.2 % Neutrophils # (Manual) 2.22 K/uL Total Absolute Neutrophils 2.22 K/uL Lymphocytes # (Manual) 0.60 K/uL Absolute Variant Lymphocytes 0.67 K/uL Total Absolute Lymphocytes 1.27 K/uL Monocytes # (Manual) 0.35 K/uL Large Platelets 1+ Echinocytes 1+ Sodium Level 135 mmol/L Potassium Level 3.7 mmol/L Chloride Level 106 mmol/L Carbon Dioxide Level 24 mmol/L Anion Gap 5.0 mmol/L Blood Urea Nitrogen 13 mg/dl Creatinine 0.83 mg/dl Est Creatinine Clear Calc Drug Dose 112.3 ml/min Estimated GFR () 105.5 Estimated GFR (Non- 91.0 BUN/Creatinine Ratio 15.9 Random Glucose 105 mg/dl Estimated Average Glucose 126 mg/dl Hemoglobin A1c 6.0 % Calcium Level 8.7 mg/dl Assessment and Plan (1) Anaplasmosis Assessment & Plan: continue doxy, can stop levaquin from Id standpoint. will need 10 days total. (2) Fever
[2017-04-20 14:53] VITALS: BP 119/65; PULSE 81; TEMP 37; O2SAT 97
--- NOTE | 2017-04-20 19:58 | Progress Note ---
Medicine Progress Note Date & Time of Visit: Apr 20, 2017 at 19:53. Subjective patient seen sitting up in bed, comfortable states he feels that he is beginning to improve still has some frontal headache when coughing, no neck stiffness no chills no bleeding appetite improving Objective Last 8 Hrs Date Time Temp Pulse Resp B/P (MAP) Pulse Ox O2 Delivery O2 Flow Rate FiO2 04/20/17 16:52 Room Air 04/20/17 14:53 37.0 81 18 119/65 (83) 97 Room Air Physical Exam: General- oriented x 3, not in distress, speaks in sentences with no effort Eyes- anicteric Neck- supple, no JVD Lungs- clear to auscultation bilaterally, no rales/wheezes Heart- regular rhythm; no murmurs, normal rate Abdomen- normal bowel sounds, soft, nontender Extremities- no pretibial edema, no calf tenderness Neuro- alert, oriented x 3; no gross focal deficits Skin- warm & dry Laboratory Results: Last 24 Hours Test 04/20/17 06:02 White Blood Count 3.84 K/uL Red Blood Count 4.46 M/uL Hemoglobin 13.3 g/dL Hematocrit 38.1 % Mean Corpuscular Volume 85.4 fL Mean Corpuscular Hemoglobin 29.8 pg Mean Corpuscular Hemoglobin Concent 34.9 g/dl Platelet Count 54 K/uL Mean Platelet Volume 11.9 fL RDW Standard Deviation 39.2 fL RDW Coefficient of Variation 12.5 % Neutrophils % (Manual) 57.8 % Lymphocytes % (Manual) 15.6 % Variant Lymphocytes % (manual) 17.4 % Monocytes % (Manual) 9.2 % Neutrophils # (Manual) 2.22 K/uL Total Absolute Neutrophils 2.22 K/uL Lymphocytes # (Manual) 0.60 K/uL Absolute Variant Lymphocytes 0.67 K/uL Total Absolute Lymphocytes 1.27 K/uL Monocytes # (Manual) 0.35 K/uL Large Platelets 1+ Echinocytes 1+ Sodium Level 135 mmol/L Potassium Level 3.7 mmol/L Chloride Level 106 mmol/L Carbon Dioxide Level 24 mmol/L Anion Gap 5.0 mmol/L Blood Urea Nitrogen 13 mg/dl Creatinine 0.83 mg/dl Est Creatinine Clear Calc Drug Dose 112.3 ml/min Estimated GFR () 105.5 Estimated GFR (Non- 91.0 BUN/Creatinine Ratio 15.9 Random Glucose 105 mg/dl Estimated Average Glucose 126 mg/dl Hemoglobin A1c 6.0 % Calcium Level 8.7 mg/dl Assessment & Plan 66 yoM presents with collection of symptoms consistent with tick-borne illness and CAP POSSIBLE ANAPLASMOSIS - symptoms improving slowly fever curve improving WBC and Plt still low but increasing in trend - no signs of bleeding - continue Doxycycline day 07/25 ID consulted, appreciate the recommendations POSSIBLE PNEUMONIA vs. ATELECTASIS - CXR: IMPRESSION: Subsegmental alveolar opacities of the inferior segment lingula are suspicious for pneumonia or atelectasis. The lungs are otherwise clear. - cough improving on Doxy Incentive Spirometry HTN-controlled on home meds including lisinopril 20mg daily and Norvasc 5 mg PO daily. Pre DM - A1c 6.0 - DM diet DM educator consulted DVT proph-contraindicated in setting of thrombocytopenia, SCDs were ordered encouraged to ambulate Full Code Dispo anticipate d/c home when medically stable ff up with PCP Current Inpatient Medications: Current Inpatient Medications Medications (Trade) Dose Ordered Sig/Reji Route Start Time Stop Time Status Last Admin Dose Admin Acetaminophen (Tylenol Tab) 650 mg Q4H PRN PO 04/18/17 14:45 05/18/17 14:44 04/19/17 17:40 650 MG Polyethylene (Miralax Powder Packet) 17 gm DAILY PRN PO 04/18/17 14:45 05/18/17 14:44 Ondansetron HCl (Zofran Inj) 4 mg Q6H PRN IV 04/18/17 14:45 05/18/17 14:44 Amlodipine Besylate (Norvasc Tab) 5 mg QAM PO 04/19/17 09:00 05/19/17 08:59 04/20/17 08:54 5 MG Lisinopril (Zestril Tab) 20 mg QAM PO 04/19/17 09:00 05/19/17 08:59 04/20/17 08:54 20 MG Doxycycline Hyclate 100 mg/ Dextrose 110 ml @ 50 mls/hr Q12H IV 04/19/17 04:00 05/02/17 15:59 04/20/17 15:57 50 MLS/HR Potassium Chloride/Sodium Chloride 1,000 ml @ 80 mls/hr [id number] IV 04/19/17 07:45 05/19/17 07:44 04/20/17 03:31 80 MLS/HR Sodium Chloride ([place] Nasal [place]) 2 sprays PRN PRN NA 04/19/17 12:30 05/19/17 12:29
[2017-04-21] VITALS (7 sets, daily range): BP systolic 100–148; BP diastolic 65–77; PULSE 69–95; TEMP 36.5–36.8; O2SAT 95–98; Ht 177.8 cm; Wt 120.3 kg
[2017-04-21] MEDS: DOXYCYCLINE IV 100 MG in DEXTROSE 5% 100ML 100 ML IV SCH ×2 (04:33→15:28)
[2017-04-21 08:07] LABS: HEMATOCRIT 36.7 % (42-52); MEAN CELL VOLUME 85.5 fL (80-100); MEAN CORPUSCULAR HEMOGLOBIN 29.1 pg (25-34); MEAN CORPUSCULAR HGB CONC 34.1 g/dl (32-36); MEAN PLATELET VOLUME 11.8 fL (7.4-10.4); PLATELET COUNT 82 K/uL (130-400); RED BLOOD COUNT 4.29 M/uL (4.7-6.1); WHITE BLOOD COUNT 5.89 K/uL (4.8-10.8)
[2017-04-21 08:27] LABS: BUN/CREATININE RATIO 16.1 (10-20); CALCIUM 8.6 mg/dl (8.5-10.1); CREATININE 0.76 mg/dl (0.60-1.40); POTASSIUM 3.8 mmol/L (3.5-5.1)
[2017-04-21] MEDS: LISINOPRIL 20 MG TAB PO SCH (08:28)
[2017-04-21] MEDS: AMLODIPINE BESYLATE 5 MG TAB PO SCH (08:28)
[2017-04-21] MEDS: ACETAMINOPHEN 325 MG TAB PO PRN (08:31)
[2017-04-21 09:28] LABS: ECHINOCYTES 1+
[2017-04-21 09:34] LABS: COMPLETE YES; EOSINOPHIL % 4.3 %; LYMPHOCYTE % 32.2 %; NEUTROPHILS % 16.5 %; VARIANT LYM ABS # 2.26 K/uL; VARIANT LYMPHOCYTE % 38.3 %
--- NOTE | 2017-04-21 13:04 | Progress Note ---
Medicine Progress Note Date & Time of Visit: Apr 21, 2017 at 12:42. Subjective Pt was seen and examined Lying in bed with no distress with at bedside Pt said that he feels much better He said that he feels fine Denies any chest pain, palpitation, dizziness and SOB Objective Last 8 Hrs Date Time Temp Pulse Resp B/P (MAP) Pulse Ox O2 Delivery O2 Flow Rate FiO2 04/21/17 08:30 148/69 (95) 04/21/17 08:00 Room Air 04/21/17 07:59 36.5 78 18 100/65 (77) 98 Room Air Physical Exam: General- No acute distress Head- atraumatic Eyes- PERRL, EOMI ENT- oropharynx clear Neck- supple, no JVD Lungs- clear to auscultation Heart- regular rhythm; no murmur Abdomen- normal bowel sounds, soft Extremities- No calf tenderness Neuro- alert, oriented x 3; PERRL, EOMI; no facial palsy Skin- warm & dry Laboratory Results: Last 24 Hours Test 04/21/17 07:48 White Blood Count 5.89 K/uL Red Blood Count 4.29 M/uL Hemoglobin 12.5 g/dL Hematocrit 36.7 % Mean Corpuscular Volume 85.5 fL Mean Corpuscular Hemoglobin 29.1 pg Mean Corpuscular Hemoglobin Concent 34.1 g/dl Platelet Count 82 K/uL Mean Platelet Volume 11.8 fL RDW Standard Deviation 40.2 fL RDW Coefficient of Variation 12.8 % Neutrophils % (Manual) 16.5 % Lymphocytes % (Manual) 32.2 % Variant Lymphocytes % (manual) 38.3 % Monocytes % (Manual) 8.7 % Eosinophils % (Manual) 4.3 % Neutrophils # (Manual) 0.97 K/uL Total Absolute Neutrophils 0.97 K/uL Lymphocytes # (Manual) 1.90 K/uL Absolute Variant Lymphocytes 2.26 K/uL Total Absolute Lymphocytes 4.15 K/uL Monocytes # (Manual) 0.51 K/uL Eosinophils # (Manual) 0.25 K/uL Echinocytes 1+ Sodium Level 140 mmol/L Potassium Level 3.8 mmol/L Chloride Level 109 mmol/L Carbon Dioxide Level 22 mmol/L Anion Gap 9.0 mmol/L Blood Urea Nitrogen 12 mg/dl Creatinine 0.76 mg/dl Est Creatinine Clear Calc Drug Dose 122.6 ml/min Estimated GFR () 109.4 Estimated GFR (Non- 94.4 BUN/Creatinine Ratio 16.1 Random Glucose 108 mg/dl Calcium Level 8.6 mg/dl Assessment & Plan 66 yoM presents with collection of symptoms consistent with tick-borne illness and CAP POSSIBLE ANAPLASMOSIS FEVER Has been afebrile in the last 48hrs WBC wnl Blood cx no growth Continue doxycycline day 4 ID on board recommended to complete 10 days course of doxy Thrombocytopenia Plt improved to 84 No signs of bleeding Continue monitor CBC POSSIBLE PNEUMONIA vs. ATELECTASIS CXR showed Subsegmental alveolar opacities of the inferior segment lingula are suspicious for pneumonia or atelectasis. Levaquin was discontinued Already on Doxy Incentive Spirometry HTN Continue lisinopril 20mg daily and Norvasc 5 mg PO daily. Pre Diabetes last hbA1c 6.0 on 04/20 Lifestyle modification Advised pt to follow a healthy DM diet with low carb and limited concentrated sweet DVT on SCDs due to low plts CODE STATUS Full Code Disposition Will discharge home tomorrow Follow up with your primary care provider Current Inpatient Medications: Current Inpatient Medications Medications (Trade) Dose Ordered Sig/Reji Route Start Time Stop Time Status Last Admin Dose Admin Acetaminophen (Tylenol Tab) 650 mg Q4H PRN PO 04/18/17 14:45 05/18/17 14:44 04/21/17 08:31 650 MG Polyethylene (Miralax Powder Packet) 17 gm DAILY PRN PO 04/18/17 14:45 05/18/17 14:44 Ondansetron HCl (Zofran Inj) 4 mg Q6H PRN IV 04/18/17 14:45 05/18/17 14:44 Amlodipine Besylate (Norvasc Tab) 5 mg QAM PO 04/19/17 09:00 05/19/17 08:59 04/21/17 08:28 5 MG Lisinopril (Zestril Tab) 20 mg QAM PO 04/19/17 09:00 05/19/17 08:59 04/21/17 08:28 20 MG Doxycycline Hyclate 100 mg/ Dextrose 110 ml @ 50 mls/hr Q12H IV 04/19/17 04:00 05/02/17 15:59 04/21/17 04:33 50 MLS/HR Potassium Chloride/Sodium Chloride 1,000 ml @ 80 mls/hr [id number] IV 04/19/17 07:45 05/19/17 07:44 04/20/17 22:01 80 MLS/HR Sodium Chloride ([place] Nasal [place]) 2 sprays PRN PRN NA 04/19/17 12:30 05/19/17 12:29
--- NOTE | 2017-04-21 14:45 | Progress Note ---
Subjective Date of Service: Apr 21, 2017. Subjective remains on doxy, afebrile. wbc platelets improving. tolerating abx levaquin stopped. for d/c in am. Problem List Medical Problems: (1) Anaplasmosis Status: Acute (2) Hyponatremia Status: Acute (3) Thrombocytopenia Status: Acute Objective Vital Signs Date Time Temp Pulse Resp B/P (MAP) Pulse Ox O2 Delivery O2 Flow Rate FiO2 04/21/17 08:30 148/69 (95) 04/21/17 08:00 Room Air 04/21/17 07:59 36.5 78 18 100/65 (77) 98 Room Air 04/21/17 00:39 36.8 95 20 115/72 (86) 95 Room Air 04/21/17 00:00 96 Room Air 04/20/17 16:52 Room Air 04/20/17 14:53 37.0 81 18 119/65 (83) 97 Room Air Laboratory Results Item Value Date Time Blood Culture - Preliminary Resulted 04/18/17 1725 Blood NO GROWTH TO DATE. Blood Culture - Preliminary Resulted 04/18/17 1718 Blood NO GROWTH TO DATE. Last 24 Hours Test 04/21/17 07:48 White Blood Count 5.89 K/uL Red Blood Count 4.29 M/uL Hemoglobin 12.5 g/dL Hematocrit 36.7 % Mean Corpuscular Volume 85.5 fL Mean Corpuscular Hemoglobin 29.1 pg Mean Corpuscular Hemoglobin Concent 34.1 g/dl Platelet Count 82 K/uL Mean Platelet Volume 11.8 fL RDW Standard Deviation 40.2 fL RDW Coefficient of Variation 12.8 % Neutrophils % (Manual) 16.5 % Lymphocytes % (Manual) 32.2 % Variant Lymphocytes % (manual) 38.3 % Monocytes % (Manual) 8.7 % Eosinophils % (Manual) 4.3 % Neutrophils # (Manual) 0.97 K/uL Total Absolute Neutrophils 0.97 K/uL Lymphocytes # (Manual) 1.90 K/uL Absolute Variant Lymphocytes 2.26 K/uL Total Absolute Lymphocytes 4.15 K/uL Monocytes # (Manual) 0.51 K/uL Eosinophils # (Manual) 0.25 K/uL Echinocytes 1+ Sodium Level 140 mmol/L Potassium Level 3.8 mmol/L Chloride Level 109 mmol/L Carbon Dioxide Level 22 mmol/L Anion Gap 9.0 mmol/L Blood Urea Nitrogen 12 mg/dl Creatinine 0.76 mg/dl Est Creatinine Clear Calc Drug Dose 122.6 ml/min Estimated GFR () 109.4 Estimated GFR (Non- 94.4 BUN/Creatinine Ratio 16.1 Random Glucose 108 mg/dl Calcium Level 8.6 mg/dl Assessment and Plan (1) Anaplasmosis Assessment & Plan: continue doxy, can change to po. will need 10 days total. ok for d/c when otherwise stable. (2) Fever
[2017-04-21] MEDS: NSS + 20MEQ KCL 1000ML 1,000 ML IV SCH (14:50)
[2017-04-21 17:36] LABS: ANAPLASMA PHAGOCYTOPHIL DNA Detected (Not Detected)
[2017-04-22 00:18] VITALS: BP 117/77; PULSE 69; TEMP 36.6; O2SAT 97
[2017-04-22] MEDS: DOXYCYCLINE IV 100 MG in DEXTROSE 5% 100ML 100 ML IV SCH (03:52)
[2017-04-22] MEDS: ACETAMINOPHEN 325 MG TAB PO PRN (06:41)
[2017-04-22 07:39] VITALS: BP 120/75; PULSE 63; TEMP 36.6; O2SAT 96
[2017-04-22 07:39] LABS: BUN/CREATININE RATIO 14.6 (10-20); CALCIUM 8.8 mg/dl (8.5-10.1); CREATININE 0.82 mg/dl (0.60-1.40)
[2017-04-22 07:58] LABS: HEMATOCRIT 38.5 % (42-52); MEAN CELL VOLUME 85.6 fL (80-100); MEAN CORPUSCULAR HEMOGLOBIN 29.3 pg (25-34); MEAN CORPUSCULAR HGB CONC 34.3 g/dl (32-36); MEAN PLATELET VOLUME 11.1 fL (7.4-10.4); PLATELET COUNT 128 K/uL (130-400); WHITE BLOOD COUNT 8.54 K/uL (4.8-10.8)
[2017-04-22 08:00] LABS: BASO ABS # 0.08 K/uL (0-0.2); BASOPHIL % 0.9 % (0-2); COMPLETE YES; EOSINOPHIL % 0.9 %; GIANT PLATELETS 1+; LYMPHOCYTE % 22.3 %; NEUTROPHILS % 19.6 %; PLT ESTIMATE DECREASED; VARIANT LYM ABS # 4.65 K/uL; VARIANT LYMPHOCYTE % 54.5 %
[2017-04-22] MEDS: NSS + 20MEQ KCL 1000ML 1,000 ML IV SCH (08:41)
[2017-04-22] MEDS: AMLODIPINE BESYLATE 5 MG TAB PO SCH (08:42)
[2017-04-22] MEDS: LISINOPRIL 20 MG TAB PO SCH (08:42)
--- NOTE | 2017-04-22 11:40 | Progress Note ---
Medicine Progress Note Date & Time of Visit: Apr 22, 2017 at 11:30. Subjective Pt was seen and examined Sitting in bed with no distress Pt said that he feels fine Denies any chest pain, palpitation, dizziness and SOB Objective Last 8 Hrs Date Time Temp Pulse Resp B/P (MAP) Pulse Ox O2 Delivery O2 Flow Rate FiO2 04/22/17 08:00 Room Air 04/22/17 07:39 36.6 63 16 120/75 (90) 96 Room Air Physical Exam: General- No acute distress Head- atraumatic Eyes- PERRL, EOMI ENT- oropharynx clear Neck- supple, no JVD Lungs- clear to auscultation Heart- regular rhythm; no murmur Abdomen- normal bowel sounds, soft Extremities- No calf tenderness Neuro- alert, oriented x 3; PERRL, EOMI; no facial palsy Skin- warm & dry Laboratory Results: Last 24 Hours Test 04/22/17 07:04 White Blood Count 8.54 K/uL Red Blood Count 4.50 M/uL Hemoglobin 13.2 g/dL Hematocrit 38.5 % Mean Corpuscular Volume 85.6 fL Mean Corpuscular Hemoglobin 29.3 pg Mean Corpuscular Hemoglobin Concent 34.3 g/dl Platelet Count 128 K/uL Mean Platelet Volume 11.1 fL RDW Standard Deviation 40.1 fL RDW Coefficient of Variation 12.9 % Neutrophils % (Manual) 19.6 % Lymphocytes % (Manual) 22.3 % Variant Lymphocytes % (manual) 54.5 % Monocytes % (Manual) 1.8 % Eosinophils % (Manual) 0.9 % Basophils % (Manual) 0.9 % Neutrophils # (Manual) 1.67 K/uL Total Absolute Neutrophils 1.67 K/uL Lymphocytes # (Manual) 1.90 K/uL Absolute Variant Lymphocytes 4.65 K/uL Total Absolute Lymphocytes 6.56 K/uL Monocytes # (Manual) 0.15 K/uL Eosinophils # (Manual) 0.08 K/uL Basophils # (Manual) 0.08 K/uL Platelet Estimate DECREASED Giant Platelets 1+ Sodium Level 139 mmol/L Potassium Level 4.0 mmol/L Chloride Level 108 mmol/L Carbon Dioxide Level 24 mmol/L Anion Gap 7.0 mmol/L Blood Urea Nitrogen 12 mg/dl Creatinine 0.82 mg/dl Est Creatinine Clear Calc Drug Dose 113.7 ml/min Estimated GFR () 106.1 Estimated GFR (Non- 91.5 BUN/Creatinine Ratio 14.6 Random Glucose 105 mg/dl Calcium Level 8.8 mg/dl Assessment & Plan 66 yoM presents with collection of symptoms consistent with tick-borne illness and CAP ANAPLASMOSIS FEVER Has been afebrile in the last 48hrs WBC wnl Blood cx no growth Phagocytophilum DNA detected Continue doxycycline day 5 ID on board recommended to complete 10 days course of doxy Thrombocytopenia Plt improved to 128 No signs of bleeding Continue monitor CBC POSSIBLE PNEUMONIA vs. ATELECTASIS CXR showed Subsegmental alveolar opacities of the inferior segment lingula are suspicious for pneumonia or atelectasis. Levaquin was discontinued Already on Doxy Incentive Spirometry HTN Continue lisinopril 20mg daily and Norvasc 5 mg PO daily. Pre Diabetes last hbA1c 6.0 on 04/20 Lifestyle modification Advised pt to follow a healthy DM diet with low carb and limited concentrated sweet DVT on SCDs due to low plts CODE STATUS Full Code Disposition Will discharge home today Follow up with your primary care provider Consultants: ID Current Inpatient Medications: Current Inpatient Medications Medications (Trade) Dose Ordered Sig/Reji Route Start Time Stop Time Status Last Admin Dose Admin Acetaminophen (Tylenol Tab) 650 mg Q4H PRN PO 04/18/17 14:45 05/18/17 14:44 04/22/17 06:41 650 MG Polyethylene (Miralax Powder Packet) 17 gm DAILY PRN PO 04/18/17 14:45 05/18/17 14:44 Ondansetron HCl (Zofran Inj) 4 mg Q6H PRN IV 04/18/17 14:45 05/18/17 14:44 Amlodipine Besylate (Norvasc Tab) 5 mg QAM PO 04/19/17 09:00 05/19/17 08:59 04/22/17 08:42 5 MG Lisinopril (Zestril Tab) 20 mg QAM PO 04/19/17 09:00 05/19/17 08:59 04/22/17 08:42 20 MG Doxycycline Hyclate 100 mg/ Dextrose 110 ml @ 50 mls/hr Q12H IV 04/19/17 04:00 05/02/17 15:59 04/22/17 03:52 50 MLS/HR Potassium Chloride/Sodium Chloride 1,000 ml @ 80 mls/hr [id number] IV 04/19/17 07:45 05/19/17 07:44 04/22/17 08:41 80 MLS/HR Sodium Chloride ([place] Nasal [place]) 2 sprays PRN PRN NA 04/19/17 12:30 05/19/17 12:29
[2017-04-22] MEDS ORDERED: DXY100 PO (11:44)
--- NOTE | 2017-04-22 11:49 | Discharge Instructions ---
Discharge Instructions Date of Service Apr 22, 2017. Admission Reason for Admission: Pneumonia Discharge Discharge Diagnosis / Problem: Fever, ANAPLASMOSIS, Pneumonia Discharge Goals Goal(s): Decrease discomfort, Improve function, Improve disease control Activity Recommendations Activity Limitations: resume your previous activity . Instructions / Follow-Up Instructions / Follow-Up Please call to schedule follow up appointment with your primary care provider Check CBC in 1 week Hold any NSAIDs for now such as naproxen, motrin, aleve, aspirin and ibuprofen due to risk of bleeding Complete antibiotic course with doxycycline Current Hospital Diet Patient's current hospital diet: AHA Diet (Heart Healthy), Diabetes Type 2 Diet Discharge Diet Recommended Diet: AHA Diet (Heart Healthy), Diabetes Type 2 Diet Pending Studies Studies pending at discharge: yes List of pending studies: Follow up phagocytophilum (tick pathogen) Laboratory Results Hemoglobin A1c Test 04/20/17 06:02 Range/Units Estimated Average Glucose 126 mg/dl Hemoglobin A1c 6.0 H 4.5-5.6 % Medical Emergencies . Who to Call and When: Medical Emergencies: If at any time you feel your situation is an emergency, please call 911 immediately. . Non-Emergent Contact Non-Emergency issues call your: Primary Care Provider Call Non-Emergent contact if: temperature is above 101, you have any medication questions . . "Provider Documentation" section prepared by Rod Butcher. . VTE Core Measure Inpt VTE Proph given/why not?: SCD's, Contraindicated
[2017-04-22 11:53] VITALS: BP 120/75; PULSE 63; TEMP 36.6; O2SAT 96
[2017-04-22 19:30] LABS: ANAPLASMA PHAGOCYTOPHIL IGG <1:64 (<1:64); ANAPLASMA PHAGOCYTOPHIL IGM <1:20 (<1:20)
[2017-04-22] MEDS ORDERED: DOXYCYCLINE HYCLATE 100 MG CAP PO SCH (21:00)
== END 2017-04-22 14:14 | disposition home or self-care (01) | DRG 867 ==
LOC: C.EDB 11:52 → C.MS2W 14:43 → ENRESERV 14:54
PROVIDERS: ADMIT Hospitalist; ATTEND Internal Medicine
DX: A77.49 Other ehrlichiosis (principal); J18.9 Pneumonia, unspecified organism; E87.1 Hypo-osmolality and hyponatremia; J98.11 Atelectasis; D69.6 Thrombocytopenia, unspecified; R73.03 Prediabetes; I10 Essential (primary) hypertension; Z79.899 Other long term (current) drug therapy; Z87.01 Personal history of pneumonia (recurrent); Z82.49 Family history of ischemic heart disease and other diseases of the circulatory system; Z83.3 Family history of diabetes mellitus

== ENCOUNTER → 2017-06-18 | Outpatient (CLI) | payer OTHER ==
[~2017-06-18] MED LIST: AMLO-110 PO; DXY100 PO; LISI20TA3 PO; NAPR1TAB9 PO; OPTIRAY 320 IV PRN
--- NOTE | 2017-06-18 09:15 | DIAGNOSTIC IMAGING REPORT ---
(CHEST) THORAX WITH CLINICAL HISTORY: 66 years-old Male presenting with J98.11 Atelectasis, J18.0 Bronchopneumonia. TECHNIQUE: Multidetector CT imaging of the chest was performed after the administration of intravenous contrast. IV contrast: 95 mL of Optiray 320. A dose lowering technique was used consistent with the principles of ALARA (as low as reasonably achievable). COMPARISON: Chest x-ray performed on 04/18/2017. CT DOSE (mGy.cm): The estimated cumulative dose is 725.16 mGycm. FINDINGS: Warp Picker topogram: Mild cardiomegaly. On soft tissue windows, bilateral gynecomastia. Normal thyroid. No axillary, supraclavicular, hilar, or mediastinal lymphadenopathy. Normal aorta. Mild multichamber enlargement of the heart. No pericardial or pleural effusion. Upper abdomen normal. On lung windows, minimal dependent changes likely atelectasis. Mosaic attenuation also noted at the lung bases. No other focal nodule or infiltrate. Airways patent. On bone windows, degenerative changes of the spine. IMPRESSION: 1. No convincing evidence of acute intrathoracic pathology. No focal infiltrate to suggest pneumonia. 2. Mosaic attenuation at the lung bases could indicate small airways disease. Minimal basilar atelectasis. 3. Mild cardiomegaly. Electronically signed by: Mike Clayton M.D. 06/18/2017 9:13 AM Dictated Date/Time: 06/18/2017 9:06 AM
== END | disposition home or self-care (01) ==
LOC: C.CTS 08:42
PROVIDERS: ATTEND Internal Medicine Pulmonary Disease
DX: J18.0 Bronchopneumonia, unspecified organism (principal); J98.11 Atelectasis; I51.7 Cardiomegaly

== ENCOUNTER 2021-01-30 06:33 | Inpatient (IN) ==
--- NOTE | 2020-12-28 15:23 | PAT Medication Instructions ---
Medication Instructions Date of Service December 28, 2020 Home Medications Medication Instructions Recorded aspirin 81 mg tablet,delayed 81 mg PO DAILY #30 tab 12/01/18 release (Aspir-) glucosamine sulfate 500 mg tablet 500 mg PO DAILY #30 tab 12/01/18 (Glucosamine) multivitamin (Daily Multi-Vitamin) 1 tab PO DAILY #30 tab 12/01/18 omega-3 fatty acids 1,000 mg 1,000 mg PO DAILY #30 cap 12/01/18 capsule (Fish Oil Concentrate) pyridoxine (vitamin B6) 100 mg 100 mg PO DAILY #30 tab 12/01/18 tablet (Vitamin B-6) vitamin B complex (B 1 tab PO DAILY #30 tab 12/01/18 Complex-Vitamin B12) ipratropium bromide 42 mcg (0.06 2 spray INTRANASAL BID #15 ml 01/03/ %) nasal spray aspirin 81 mg tablet,delayed release (Aspir-) 81 mg PO DAILY glucosamine sulfate 500 mg tablet (Glucosamine) 500 mg PO DAILY multivitamin (Daily Multi-Vitamin) 1 tab PO DAILY omega-3 fatty acids 1,000 mg capsule (Fish Oil Concentrate) 1,000 mg PO DAILY pyridoxine (vitamin B6) 100 mg tablet (Vitamin B-6) 100 mg PO DAILY vitamin B complex (B Complex-Vitamin B12) 1 tab PO DAILY ipratropium bromide 42 mcg (0.06 %) nasal spray 2 spray INTRANASAL BID acetaminophen 650 mg tablet,extended release (Tylenol 8 Hour) 650 mg PO Q8H PRN turmeric root extract 500 mg capsule 500 mg PO DAILY ferrous gluconate 236 mg (27 mg iron) tablet 236 mg PO DAILY lactobacillus combination no.8 3 billion cell capsule (Adult Probiotic) 3,000 mmu cells PO DAILY potassium 99 mg tablet 99 mg PO DAILY amlodipine 5 mg tablet 5 mg PO QAM lisinopril 20 mg tablet 20 mg PO QAM STOP taking 2 weeks before surgery (or as soon as possible if surgery is within 2 weeks) glucosamine sulfate 500 mg tablet (Glucosamine) 500 mg PO DAILY omega-3 fatty acids 1,000 mg capsule (Fish Oil Concentrate) 1,000 mg PO DAILY turmeric root extract 500 mg capsule 500 mg PO DAILY DO NOT take the morning of surgery multivitamin (Daily Multi-Vitamin) 1 tab PO DAILY pyridoxine (vitamin B6) 100 mg tablet (Vitamin B-6) 100 mg PO DAILY vitamin B complex (B Complex-Vitamin B12) 1 tab PO DAILY ferrous gluconate 236 mg (27 mg iron) tablet 236 mg PO DAILY lactobacillus combination no.8 3 billion cell capsule (Adult Probiotic) 3,000 mmu cells PO DAILY potassium 99 mg tablet 99 mg PO DAILY lisinopril 20 mg tablet 20 mg PO QAM Take morning of surgery With a small sip of water, OTHERWISE NOTHING TO EAT OR DRINK AFTER MIDNIGHT: aspirin 81 mg tablet,delayed release (Aspir-) 81 mg PO DAILY (continue as normal unless told otherwise by surgeon) ipratropium bromide 42 mcg (0.06 %) nasal spray 2 spray INTRANASAL BID acetaminophen 650 mg tablet,extended release (Tylenol 8 Hour) 650 mg PO Q8H PRN (okay to take up to 4 hours prior to surgery if needed) amlodipine 5 mg tablet 5 mg PO QAM Take evening before surgery ipratropium bromide 42 mcg (0.06 %) nasal spray 2 spray INTRANASAL BID acetaminophen 650 mg tablet,extended release (Tylenol 8 Hour) 650 mg PO Q8H PRN (if needed) Other Notes If you have any questions please call us at [phone] or [phone] or [phone] or [phone]
--- NOTE | 2021-01-01 13:25 | Anesthesiology Consultation ---
Date of Service January 01, 2021 Assessment & Plan (1) Encounter for pre-operative examination: Chart Review Chart Review: Acceptable Risk for Surgery (pending surgeon ordered PCP clearance, repeat CXR and preop Covid testing results ) and Patient seen in Pre Admission Testing -Awaiting PCP clearance 01/04/21 -Awaiting repeat CXR (surgeon ordering) Upon review of chart- patient is an acceptable candidate for [facility] from anesthesia perspective. Patient is motivated and has good support. Pending surgeon's office completes [facility] preop requirements- patient may proceed with outpatient TKA. Per PAT appt on 01/01/21, patient denies any recent travel or large group activities. No known Covid positive contacts or Covid related symptoms. No known Covid infection in the past 90 days. Pt is vaccinated for Covid. Preop Covid testing scheduled 01/28/21 = will await results. Educated on importance of self quarantining, social distancing and wearing mask in public for the patient one week prior to surgery and after Covid testing done Teaching & Discussion Pre-Anesthesia Teaching/Discussion Notes: Instructed NPO after midnight before surgery,except medications with 15 cc of water. Medication instructions provided according to the PAT guidelines. History Surgery Operation Date: 01/30/21 10:35 Proposed Procedures p Right Total Knee Arthroplasty - Reymundo Fonseca DO Height/Weight Height: 5 ft 10 in Weight: 124.1 kg Allergies Allergy/AdvReac Type Severity Reaction Status Date / Time simvastatin Allergy Reaction Verified 01/01/21 13:26 unknown Medications Home Medications Medication Instructions Recorded Confirmed Last Taken aspirin 81 mg tablet,delayed 81 mg PO DAILY #30 tab 12/01/18 12/27/20 Unknown release (Aspir-) glucosamine sulfate 500 mg tablet 500 mg PO DAILY #30 tab 12/01/18 12/27/20 Unknown (Glucosamine) multivitamin (Daily Multi-Vitamin) 1 tab PO DAILY #30 tab 12/01/18 12/27/20 Unknown omega-3 fatty acids 1,000 mg 1,000 mg PO DAILY #30 cap 12/01/18 12/27/20 Unknown capsule (Fish Oil Concentrate) pyridoxine (vitamin B6) 100 mg 100 mg PO DAILY #30 tab 12/01/18 12/27/20 Unknown tablet (Vitamin B-6) vitamin B complex (B 1 tab PO DAILY #30 tab 12/01/18 12/27/20 Unknown Complex-Vitamin B12) ipratropium bromide 42 mcg (0.06 2 spray INTRANASAL BID #15 ml 01/04/20 12/27/20 Unknown %) nasal spray acetaminophen 650 mg 650 mg PO Q8H PRN 01/31/20 12/27/20 Unknown tablet,extended release (Tylenol 8 Hour) turmeric root extract 500 mg 500 mg PO DAILY 01/31/20 12/27/20 Unknown capsule ferrous gluconate 236 mg (27 mg 236 mg PO DAILY 04/06/20 12/27/20 Unknown iron) tablet lactobacillus combination no.8 3 3,000 mmu cells PO DAILY 04/06/20 12/27/20 Unknown billion cell capsule (Adult Probiotic) potassium 99 mg tablet 99 mg PO DAILY 04/06/20 12/27/20 Unknown amlodipine 5 mg tablet 5 mg PO QAM 12/27/20 12/27/20 Unknown lisinopril 20 mg tablet 20 mg PO QAM 12/27/20 12/27/20 Unknown Past Medical History Medical History Anaplasmosis Dx > 10 years ago- admitted and treated in hospital No residual issues Arthritis HTN (hypertension) Hyperlipidemia no medications Menieres disease Stable - no recent dizziness Pre-diabetes Hgb A1C 5.9 on 01/01/21 Right-sided sensorineural hearing loss Sleep apnea cpap Exercise / Class Metabolic Activity II 4-5 Yardwork/Stairs/Walk up hill (one flight of stairs - no chest pain or SOB ) Past Family History Family History Father Depression Hypertension Mother Diabetes Denies family history of Ovarian cancer Prostate cancer Myocardial infarction Breast cancer Colorectal cancer Past Surgical History Surgical History H/O umbilical hernia repair History of colonoscopy S/P herniorrhaphy right inguinal hernia repair (as a child) Past Anesthesia History No Hx of Anesthesia Complications and No Family Hx of Anesthesia Complications History of PONV No Hx of PONV and No Hx of Motion Sickness Social History Smoking Status: Never smoker tobacco type: smokeless tobacco Do You Dip or Chew Tobacco: Yes (1 can / 2 days (advised)) Hx Alcohol Use: Yes Alcohol type: beer alcohol intake frequency: a few times a month Hx Substance Use: No substance use type: does not use Review of Systems Hx blood transfusion - 25 years ago- seconary to GI bleed Patient denies chest pain, shortness of breath, dyspnea on exertion, reflux, cough, wheezing, palpitations. No hx of seizures, stroke, [place].. No hx of blood clots. Physical Exam Vital Signs VITALS BP 153/70 P 62 TEMP 97.8 SP02 97% RESP 16 Constitutional no acute distress ENMT Mouth: no TMJ clicking Thyromental Distance: > or= 3.5 Finger Breadths (3.5) Mallampati Class: I (smaller airway ) Neck + limited neck extension (mild ) Respiratory normal respiratory effort; no respiratory distress Auscultation: lungs clear to auscultation bilaterally; no wheezes Cardiovascular Rate/Rhythm: regular rate and regular rhythm Heart Sounds: no murmur Vessels: no carotid bruit Musculoskeletal Spine: + pain with cervical ROM (stiffness ) Extremities: extremities normal to inspection Psychiatric Orientation: alert Lab Results Anesthesia Preop Results Results Anesthesia Widget: WBC 7.22 K/uL (4.8-10.8) 01/01/21 Hgb 13.2 g/dL (14.0-18.0) L 01/01/21 Hct 39.9 % (42-52) L 01/01/21 Plt 324 K/uL (130-400) 01/01/21 Na 139 mmol/L (136-145) 01/01/21 K 4.6 mmol/L (3.5-5.1) 01/01/21 Cl 110 mmol/L (98-107) H 01/01/21 CO2 26 mmol/L (21-32) 01/01/21 BUN 14 mg/dl (7-18) 01/01/21 Creat 0.83 mg/dl (0.6-1.4) 01/01/21 Glucose Level 104 mg/dl (70-99) H 01/01/21 PT 9.9 Seconds (9.0-12.0) 01/01/21 PTT 26.5 Seconds (21.0-31.0) 01/01/21 INR 1.0 (0.9-1.1) 01/01/21 HA1c 5.9 % (4.5-5.6) H 01/01/21 Urine Color Yellow 01/01/21 Urine Appearance Clear (Clear) 01/01/21 Urine pH 6.0 (4.5-7.5) 01/01/21 Urine Specific [place] 1.010 (1.000-1.030) 01/01/21 Urine Protein Negative (Negative) 01/01/21 Urine Glucose (UA) Negative (Negative) 01/01/21 Urine Ketones Negative (Negative) 01/01/21 Urine Blood Negative (Negative) 01/01/21 Urine Nitrite Negative (Negative) 01/01/21 Urine Bilirubin Negative (Negative) 01/01/21 Urine Urobilinogen Negative (Negative) 01/01/21 Urine Leukocyte Esterase Negative (Negative) 01/01/21 Blood Type O Positive 01/01/21 Antibody Screen NEGATIVE 01/01/21 Testing Electrocardiogram Date: 01/01/21 Findings: + NSR @ (60bpm) Normal EKG per cardio Chest X-Ray Date: 01/01/21 FINDINGS: The cardiac silhouette is mildly enlarged. No new focal lung consolidations to suggest pneumonia. No evidence for pulmonary edema. No pleural effusions. No pneumothorax. Nodular density right lung apex on image is likely due to overlapping artifact. IMPRESSION: 1. No acute process within the chest. 2. A nodular density within the right lung apex is likely due to overlapping artifact. Repeat PA and lateral views of the chest are recommended to exclude the less likely possibility of a pulmonary nodule. 3. This finding was called/faxed to the referring physician following dictation. (Surgeon's office is aware and ordering additional CXR imaging) Echocardiogram Date: 06/20/20 EF: 50-55% LV Function: normal Other Findings: no LVH Valvular Disease: + no significant valvular disease RV mildly enlarged LA mildly dilated. RA mildly enlarged. Stress Test Date: 07/18/20 Type: exercise Negative for ischemia by EKG criteria. MPHR 86%; 7.0 METS achieved.
--- NOTE | 2021-01-14 07:55 | History & Physical Report ---
Date of Service January 14, 2021 date of surgery: 01/30/21 Procedure: Right Total Knee Arthroplasty Assessment & Plan (1) Arthritis of right knee: Plan: Further care discussed with patient and at this point in time has failed conservative measures and would like to proceed with a Right total knee replacement. Plan on discharge will be home with home health physical therapy. DVT prophylaxis with TEDs, SCDs and will also place on aspirin 81 mg p.o. b.i.d. for a month postop. Patient will have follow up appointment in our office two weeks post op for staple/suture removal and re-evaluation. Patient otherwise has no other questions or concerns. The risks and benefits have been discussed including, but not limited to, risk of infection, nerve injury, stiffness, loss of motion, failure to improve, etc. Reasonable outcomes and options of treatment were discussed. An explanation of appropriate alternatives to the procedure that may be advantageous were discussed and their risks and benefits, as well as the risks and benefits of not proceeding with treatment. I offered to answer any additional inquiries concerning the treatment involved. All the patient's questions were answered. The patient is agreeable, understanding of the treatment plan and alternatives, and wishes to proceed with the treatment plan. History of Present Illness Chief Complaint: Right knee pain Primary Care Provider: Mike Fabian MD Angus is a 70 year old male who complains of right knee pain, presents for pre-op evaluation prior to a right total knee replacement by Dr Fonseca at [facility]. he has complaints of pain, decreased range of motion and stiffness in his right knee. Currently the patient states that the symptoms are moderate-severe and rated as 7/10. The pain is described as aching, sharp and throbbing. His are aggravated by ascending stairs, daily activities, first steps while awake walking. Prior NSAIDs include IBU and Aleve. He has been treated with multiple visco injections as well as cortisone injections in the past without much relief. Allergies Allergy/AdvReac Type Severity Reaction Status Date / Time simvastatin Allergy Reaction Verified 01/04/21 12:50 unknown Home Medications Medication Instructions Recorded Confirmed Type aspirin 81 mg tablet,delayed 81 mg PO DAILY #30 tab 12/01/18 01/04/21 Rx release (Aspir-) glucosamine sulfate 500 mg tablet 500 mg PO DAILY #30 tab 12/01/18 01/04/21 Rx (Glucosamine) multivitamin (Daily Multi-Vitamin) 1 tab PO DAILY #30 tab 12/01/18 01/04/21 Rx omega-3 fatty acids 1,000 mg 1,000 mg PO DAILY #30 cap 12/01/18 01/04/21 Rx capsule (Fish Oil Concentrate) pyridoxine (vitamin B6) 100 mg 100 mg PO DAILY #30 tab 12/01/18 01/04/21 Rx tablet (Vitamin B-6) vitamin B complex (B 1 tab PO DAILY #30 tab 12/01/18 01/04/21 Rx Complex-Vitamin B12) ipratropium bromide 42 mcg (0.06 2 spray INTRANASAL BID #15 ml 01/04/20 01/04/21 Rx %) nasal spray acetaminophen 650 mg 650 mg PO Q8H PRN 01/31/20 01/04/21 History tablet,extended release (Tylenol 8 Hour) turmeric root extract 500 mg 500 mg PO DAILY 01/31/20 01/04/21 History capsule ferrous gluconate 236 mg (27 mg 236 mg PO DAILY 04/06/20 01/04/21 History iron) tablet potassium 99 mg tablet 99 mg PO DAILY 04/06/20 01/04/21 History amlodipine 5 mg tablet 5 mg PO QAM #90 tab 01/04/21 01/04/21 Rx lisinopril 20 mg tablet 20 mg PO QAM #90 tab 01/04/21 01/04/21 Rx Past Med/Surg History Medical History Anaplasmosis Dx > 10 years ago- admitted and treated in hospital No residual issues Arthritis HTN (hypertension) Hyperlipidemia no medications Menieres disease Stable - no recent dizziness Pre-diabetes Hgb A1C 5.9 on 01/01/21 Right-sided sensorineural hearing loss Sleep apnea cpap Surgical History H/O umbilical hernia repair History of colonoscopy S/P herniorrhaphy right inguinal hernia repair (as a child) Family History Father Depression Hypertension Mother Diabetes Denies family history of Ovarian cancer Prostate cancer Myocardial infarction Breast cancer Colorectal cancer Social History Smoking Status: Never smoker Tobacco Type: Smokeless Tobacco (Dip or Chew) Age Started Using Tobacco: 29; Second Hand Exposure: No; Hx Alcohol Use: Yes Alcohol type: beer Hx Substance Use: No Preferred Language: Welsh Communication Ability: Effective Visual Impairment: No Limitations Hearing Ability: Hard of Hearing Specialty Cook Required: No Beliefs That Will Affect Care: None marital status: Current Living Situation: Spouse current occupational status: retired Feels Safe at Home: Yes Childhood Exposure to Second-Hand Smoke: No caffeine: Yes (coffee) during the past year weight has: remained stable Dental Care, Regularly: Yes Physical Activity Frequency: Daily Seatbelt Use: always Sunscreen Use: No Assistive Devices: CPAP Review of Systems Review of Systems: All systems reviewed & are unremarkable except as noted in HPI & below Constitutional: no fever, no chills and no sweats Respiratory: no cough and no dyspnea Cardiovascular: no chest pain, no dyspnea and no orthopnea Gastrointestinal: no abdominal pain, no nausea and no vomiting Musculoskeletal: as per Subjective / HPI Physical Exam Physical Exam: HT: 5ft 10in WT: 124kg BP: 142/60 Constitutional: WD/WN, vitals as above no acute distress Respiratory: normal respiratory effort, lungs clear to auscultation no respiratory distress, no labored breathing and does not use accessory muscles Cardiovascular: RRR, no murmur, no edema Gastrointestinal (Abdomen): normal bowel sounds, soft, nontender, no hepatosplenomegaly Musculoskeletal: Knee: + knee abnormal to inspection (RIGHT KNEE- ), + effusion (+1 effusion), + limited ROM of knee (ROM 0/3/110), + knee ROM with crepitation, + joint line tenderness (medial joint line) and + Jeanna's sign positive; no deformity, no skin erythema, no ecchymosis, no valgus laxity, no varus laxity, anterior drawer test negative, Christy's sign negative and pivot shift test negative Results & Data Results & Data ([facility]) Diagnostic Findings Right Knee X-ray: Right knee series showing advanced degenerative changes to the right knee, narrowing of the medial compartment and patello-femoral joint with patellar spurring noted, findings showing joint space narrowing of the medial compartment and patello-femoral joint, osteophyte formation and subchondral sclerosis noted. overall varus alignment. no acute bony pathology noted.
[~2021-01-30 06:33] MED LIST changes: +ACETAMINOPHEN 500 MG TAB PO SCH; -AMLO-110 PO; +CeleBREX 200 MG CAP PO SCH; -DXY100 PO; +FAMOTIDINE 20 MG TAB PO SCH; +GABAPENTIN 300 MG CAP PO SCH; -LISI20TA3 PO; +LR 500ML BOLUS, THEN 15ML/HR IV SCH; +METOCLOPRAMIDE HCL 10 MG TABLET PO SCH; -NAPR1TAB9 PO; -OPTIRAY 320 IV PRN; +ROPIVACAINE 0.5% HCL/PF 150 MG, BUPIVACAINE 0.75% MPF 20 ML, EPINEPHrine 30MG/30ML (OR ... INFIL SCH; +TRANEXAMIC ACID 1,000 MG **IV Intra-op IV SCH; +TRANEXAMIC ACID 1,000 MG **IV Pre-op IV SCH; +oxyCODONE HCL 10 MG TABCR (OxyCONTIN) PO SCH
[2021-01-30] MEDS ORDERED: MEPIVACAINE HCL 1.5% 30 ML VIAL ONE (07:01)
[2021-01-30] MEDS ORDERED: SODIUM CHLORIDE 0.9% INJ 10 ML VIAL ONE (07:01)
[2021-01-30] MEDS ORDERED: EPINEPHrine INJ 1 MG/ML AMP ONE (07:01)
[2021-01-30] MEDS ORDERED: ROPIVACAINE 0.5% 5 MG/ML 30 ML VIAL ONE (07:02)
[2021-01-30] MEDS ORDERED: LIDOCAINE 2%/EPINEPHRINE 1:200,000 20 ML SDV ONE (07:10)
--- NOTE | 2021-01-30 07:27 | History & Physical Bridge Note ---
Date of Service January 30, 2021 History & Physical Bridge Note I have examined the patient, reviewed the History & Physical and in the interval since the performance of the History & Physical I have noted the following changes of clinical significance: no changes noted
[2021-01-30] MEDS ORDERED: ATROPINE SULFATE 0.1 MG/ML 10ML SYR IV PRN (07:32)
[2021-01-30] MEDS ORDERED: ePHEDrine sulfate 50 MG/ML AMP IV PRN (07:32)
[2021-01-30] MEDS ORDERED: fentaNYL citrate 100 MCG/2 ML VIAL IV PRN (07:32)
[2021-01-30] MEDS ORDERED: PHENYLEPHRINE 100MCG/ML 5ML SYR IV PRN (07:32)
[2021-01-30] MEDS ORDERED: LABETALOL HCL IV 5 MG/ML 20ML IV PRN (07:32)
[2021-01-30] MEDS ORDERED: MEPERIDINE HCL 25 MG/ML CARP/VIAL IV PRN (07:32)
[2021-01-30] MEDS ORDERED: ONDANSETRON INJ 2 MG/ML 2 ML VIAL IV PRN ×2 (07:32→18:25)
[2021-01-30] MEDS ORDERED: HYDROmorphone INJ 1 MG/ML SYRINGE IV PRN (07:32)
[2021-01-30] MEDS ORDERED: ONDANSETRON INJ 2 MG/ML 2 ML VIAL ONE (09:28)
[2021-01-30] MEDS ORDERED: MIDAZOLAM HCL 1 MG/ML 2ML VIAL ONE (09:28)
[2021-01-30] MEDS ORDERED: PROPOFOL IV EMULSION 10 MG/ML 20 ML VIAL IV ONE (09:28)
[2021-01-30] MEDS ORDERED: ORTHO JOINT ANESTHETIC ONE (10:28)
[2021-01-30] MEDS ORDERED: KETAMINE 50 MG/5 ML SYRINGE ONE (11:24)
--- NOTE | 2021-01-30 12:25 | Operative Report ---
Post Operative Report Pre & Post Diagnosis Operation Date: 01/30/21 09:45 Pre-Op Diagnosis: Osteoarthritis Right Knee Post-Op Diagnosis: Osteoarthritis Right Knee I identified the patient and participated in the time-out.: Yes Procedure Operation Date: 01/30/21 09:45 Actual Procedures p Right Total Knee Arthroplasty(Right) utilizing Nam & [id number] Proof patient matched journey to size 8 femur 7 tibia 11 polyethylene 38 oval patella- Reymundo Fonseca DO Surgeon Reymundo Fonseca DO Microbiology Manager Patrice CASTAÑEDA Estimated Blood Loss 5 Findings Consistent with Post-Op Diagnosis Patient presents with severe end-stage DJD right knee 5 degree flexion contracture varus alignment subchondral [id number] subchondral sclerosis marginal osteophytes subchondral cystic changes with a large large effusion patient is been no response to conservative management Specimens Bone and cartilage Drains Medium bore Hemovac Anesthesia Type MAC Spinal Regional Complications none Disposition Accompanied Patient To Recovery: No Disposition: Recovery Room Indications Patient presents with severe end-stage DJD right knee no response to conservative management including physical therapy anti-inflammatories relative rest rest activity modification corticosteroid injection viscosupplementation the above intraoperative findings were noted Description of Procedure After proper prepping and draping of the Right lower extremity anterior midline incision was made over the region of the extensor extensor mechanism after meticulous hemostasis was obtained and maintained in subcutaneous tissues a medial parapatellar incision was made The patella was subluxed lateralward the medial lateral gutter were cleaned from any hypertrophic synovitis and scar tissue of the distal femoral block was placed and the distal femoral osteotomy cut was made subsequently the chamfers anterior and posterior osteotomy cuts were made utilizing the 4-in-1 block the tibia was subsequently subluxed anteriorward medial and ateral meniscal remnants were excised in their entirety remnants of the anterior and posterior cruciate ligaments were excised in their entirety excellent exposure of the proximal tibia was obtained the tibial osteotomy guide was placed on the proximal tibial osteotomy cut was made once again the knee was irrigated with copious amounts of sterile saline solution the patella was subsequently everted lateralward thickened scar tissue around the patella was removed the patella was subsequently cut utilizing a freehand technique and was drilled prepared for final preparation and placement of patella socially flexion-extension gaps were checked and the equal and symmetric trials were placed to the appropriate femoral and tibial trials with poly-spacer being placed for equal flexion and extension gaps and full range of motion including extension to 0 and flexion to 140 the trial components after having been taken to recovery range of motion was subsequently removed meticulous hemostasis was obtained and maintained subsequently a knee block injection of joint cocktail including ropivacaine 0.5% 150 mg. Bupivacaine 0.5% epinephrine 1-200,030 mL's toradol 30 mg dexamethasone 4 mg ketamine 10 mg clonidine 100 micrograms normal saline solution 30 mg was infiltrated into the soft tissues of the posterior knee medial lateral gutters and periosteal synovium special attention was paid to protect neurovascular structures at all times subsequently trial components having been removed the knee was irrigated with sterile saline solution. debris was removed the proximal tibia was subsequently prepared and was made ready for the placement of the tibial component tibial component was also cemented and tamped into position the femoral component was subsequently placed and cemented in the position the patellar component was subsequently cemented in position because hemostasis once again obtained and maintained wound having been thoroughly irrigated with debridement and debridement lavage was performed as well as a medial parapatellar incision closed with #1 Vicryl in interrupted fashion subcutaneous was closed with #2 Vicryl skin was closed with skin clips. PA-C was necessary for prepping and drapping as well as wound closure of deep fascia Sub cutaneous tissue and skin and was necessary for the case. A sterile compressive dressing was placed patient was taken to recovery in stable condition of report dictated by Raymundo I attest to the content of the Intraoperative Record and any orders documented therein. Any exceptions are noted below. I attest to the content of the Intraoperative Record and any orders documented therein. Any exceptions are noted below.
[2021-01-30] MEDS ORDERED: PHENYLEPHRINE 100MCG/ML 5ML SYR ONE (12:49)
[2021-01-30] MEDS ORDERED: PHENYLEPHRINE HCL 10 MG/ML VIAL ONE (12:49)
[2021-01-30] MEDS ORDERED: KETOROLAC 30 MG/ML VIAL ONE (12:49)
[2021-01-30] MEDS ORDERED: oxyCODONE HCL IR 5 MG TAB (IMMEDIATE RELEASE) PO PRN ×2 (13:13)
[2021-01-30] MEDS ORDERED: HYDROmorphone INJ 0.5 MG/0.5 ML SYR IV PRN (13:13)
[2021-01-30] MEDS ORDERED: SODIUM CHLORIDE 0.9% 1000ML 1,000 ML IV SCH (13:15)
--- NOTE | 2021-01-30 13:43 | XRay Report ---
XR knee RT 1 or 2V routine CLINICAL HISTORY: Postoperative evaluation. COMPARISON: None FINDINGS: Alignment of the total right knee arthroplasty is anatomic. There is no periprosthetic fra cture or unexpected radiopaque foreign body. There is a bony excrescence of the medial metadiaphysis of the right tibia suggestive of an osteochondroma. Drains are in place. IMPRESSION: Expected findings following total right knee arthroplasty. ACT 112: Negative or not required by law. Electronically signed by: Mk Covington M.D. 01/30/2021 1:42 PM
--- NOTE | 2021-01-30 14:23 | Anesthesiology Progress Note ---
Date of Service January 30, 2021 Anesthesia Post Procedure Vital Signs Vital Signs: Temp Pulse Pulse Resp BP Pulse Ox 01/30/21 14:10 46 L 18 130/70 97 01/30/21 13:40 36.5 C 52 L 16 125/70 97 01/30/21 13:30 63 18 125/68 98 01/30/21 13:20 56 L 14 120/71 98 01/30/21 13:11 36.2 C L 67 19 123/67 99 01/30/21 07:30 36.5 C 74 18 145/85 H 99 Transfer of Care Handoff Completed per policy Notes Mental Status: alert / awake / arousable Patient Amnestic to Procedure: Yes Nausea / Vomiting: adequately controlled Pain: adequately controlled Airway Patency, RR, SpO2: stable & adequate BP & HR: stable & adequate Hydration State: stable & adequate Neuraxial Anesthesia: was administered and sensory block is resolving Anesthetic Complications: no major complications apparent and Pt Satisfied with anesthetic care
--- NOTE | 2021-01-30 15:14 | Communication Note ---
Date of Service: January 30, 2021 The patient has numbness in his foot from the block. Dr. Hassan and Dr. Montes are aware and will monitor the patient if he is suitable for discharge.
--- NOTE | 2021-01-30 15:16 | Communication Note ---
Date of Service: January 30, 2021 The patient has numbness in his foot from his block. Dr. Hassan and Dr. Montes are aware and will evaluate the patient if is suitable for discharge today.
--- NOTE | 2021-01-30 17:10 | Communication Note ---
Date of Service: January 30, 2021 Decision was made to admit the patient as he had residual local anesthetic effects that prevented effective physical therapy allowing him to go home.
[2021-01-30] MEDS ORDERED: MAGNESIUM HYDROXIDE SUSP 30 ML UDC PO PRN (18:25)
[2021-01-30] MEDS ORDERED: NALOXONE HCL 0.4 MG/1 ML VIAL/CARP IV PRN (18:25)
[2021-01-30] MEDS ORDERED: bisacodyL 10 MG SUPP PR PRN (18:25)
[2021-01-30] MEDS ORDERED: SENNA 8.6 MG TAB PO SCH (21:00)
[2021-01-30] MEDS: ceFAZolin 2000MG 2,000 MG/15 ML SYR IV SCH (21:04)
[2021-01-30] MEDS: ACETAMINOPHEN 500 MG TAB PO SCH (21:04)
[2021-01-30] MEDS: DOCUSATE SODIUM 100 MG CAP PO SCH (21:05)
[2021-01-30] MEDS: ASPIRIN 81 MG ECTAB PO SCH (21:05)
[2021-01-30] MEDS: IPRATROPIUM BROMIDE NASAL SPRAY 0.06% 15ML SCH (21:06)
[2021-01-31] MEDS: ceFAZolin 2000MG 2,000 MG/15 ML SYR IV SCH (03:17)
[2021-01-31] MEDS: ACETAMINOPHEN 500 MG TAB PO SCH (04:56)
--- NOTE | 2021-01-31 07:01 | Orthopedic Progress Note ---
Date of Service January 31, 2021 Assessment & Plan (1) History of total right knee replacement: Plan: POD #1 s/p Right TKA pt/ot dvt proph with SHAQ/SCD/ASA plan for d/c home with home health PT Admission and Anticipated Discharge Date Admission Date: January 30, 2021 Subjective POD #1 s/p Right TKA Review of Systems Constitutional: no fever, no chills and no sweats Respiratory: no cough and no dyspnea Cardiovascular: no chest pain and no dyspnea Gastrointestinal: no abdominal pain, no nausea and no vomiting Physical Exam Physical Exam: Vital Signs Temp Pulse Pulse Resp BP BP Pulse Ox 01/31/21 03:07 36.8 C 61 17 142/63 H 96 01/30/21 22:18 37.0 C 57 L 17 109/69 95 01/30/21 19:32 36.8 C 57 L 17 125/68 96 01/30/21 18:00 36.7 C 58 L 18 117/67 97 01/30/21 17:10 50 L 18 141/69 H 97 01/30/21 16:10 59 L 16 121/71 96 01/30/21 15:10 54 L 18 121/61 98 01/30/21 14:40 58 L 18 119/82 97 01/30/21 14:10 46 L 18 130/70 97 01/30/21 13:40 36.5 C 52 L 16 125/70 97 01/30/21 13:30 63 18 125/68 98 01/30/21 13:20 56 L 14 120/71 98 01/30/21 13:11 36.2 C L 67 19 123/67 99 01/30/21 07:30 36.5 C 74 18 145/85 H 99 Intake and Output 01/30/21 01/30/21 01/31/21 14:59 22:59 06:59 Intake Total 1550 / 2202.5 652.5 / 2202.5 Output Total 30 / 870 540 / 870 300 / 870 Balance 1520 / 1332.5 112.5 / 1332.5 -300 / 1332.5 Intake: IV 100 / 272.5 172.5 / 272.5 Lactated Ringe r's 1,000 ml @ 15 0 / 0 mls/hr IV .Q24 H JOSEFINA Rx#: [id number] Tranexamic Aci d / 0.7% NaCl 1, 100 / 200 100 / 200 000 mg In 100 ml @ 600 mls/hr IV TODAY@0600 [facility] Rx#:[id number] ceFAZolin 3000 MG 72.5 ml @ 130 72.5 / 72.5 mls/hr IV PREO P JOSEFINA Rx#: [id number] IV Perioperative 1450 / 1450 0 / 1450 Oral 480 / 480 Output: Urine 250 / 250 Estimated Blood Loss 5 / 5 Drain Output 290 / 615 300 / 615 Right Knee 290 / 615 300 / 615 Other: # Unmeasured Voi ds 1 Weight 122.13 kg 122.13 kg Weight Measureme nt Method Standing Scale Patient Weight 01/31/21 06:59 Weight 122.13 kg Constitutional: WD/WN, vitals as above Musculoskeletal: Right Leg: NVDI, calf SNT, negative alea sign. DP palpable, able to wiggle toes/ankle movement without difficulty. dressing clean dry and intact. Results & Data ([facility]) Vital Signs (Past 12 Hours) Vital Signs Temp Pulse Resp BP Pulse Ox 01/31/21 03:07 36.8 C 61 17 142/63 H 96 01/30/21 22:18 37.0 C 57 L 17 109/69 95 01/30/21 19:32 36.8 C 57 L 17 125/68 96 Diagnostic Findings Impressions Knee X-Ray 01/30/21 13:13 XR knee RT 1 or 2V routine CLINICAL HISTORY: Postoperative evaluation. COMPARISON: None FINDINGS: Alignment of the total right knee arthroplasty is anatomic. There is no periprosthetic fracture or unexpected radiopaque foreign body. There is a bony excrescence of the medial metadiaphysis of the right tibia suggestive of an osteochondroma. Drains are in place. IMPRESSION: Expected findings following total right knee arthroplasty. ACT 112: Negative or not required by law. Electronically signed by: Mk Covington M.D. 01/30/2021 1:42 PM
[2021-01-31 07:08] LABS: Hematocrit (blood only) 36.1 % (42-52); Hemoglobin 11.9 g/dL (14.0-18.0); Mean Corpuscular Hemoglobin 29.2 pg (25-34); Mean Corpuscular Volume 88.7 fL (80-100); Mean Platelet Volume 10.1 fL (7.4-10.4); Platelet Count 310 K/uL (130-400); RDW Coefficient of Variation 13.7 % (11.5-14.5); RDW Standard Deviation 44.7 fL (36.4-46.3); Red Blood Count 4.07 M/uL (4.7-6.1); White Blood Count 12.78 K/uL (4.8-10.8)
[2021-01-31] MEDS ORDERED: oxyCODONE HCL IR 5 MG TAB (IMMEDIATE RELEASE) PO STA (07:09)
[2021-01-31] MEDS: DOCUSATE SODIUM 100 MG CAP PO SCH (07:31)
[2021-01-31] MEDS: ASPIRIN 81 MG ECTAB PO SCH (07:32)
[2021-01-31] MEDS: IPRATROPIUM BROMIDE NASAL SPRAY 0.06% 15ML SCH (07:33)
[2021-01-31 07:43] LABS: BUN Creatinine Ratio 20.9 (10-20); Calcium 8.7 mg/dl (8.5-10.1); Creatinine Clr Calc Pharmacy 84.6 ml/min; Est GFR (African American) 82.4 ml/min; Est GFR (Non-African American) 71.1 ml/min; Potassium 4.3 mmol/L (3.5-5.1)
[2021-01-31] MEDS ORDERED: VITAMIN B COMPLEX TAB PO SCH (09:00)
[2021-01-31] MEDS ORDERED: amLODIPine BESYLATE 5 MG TAB PO SCH (09:00)
[2021-01-31] MEDS ORDERED: MULTIVITAMIN TAB PO SCH ×2 (09:00)
[2021-01-31] MEDS ORDERED: PYRIDOXINE HCL 50 MG TAB PO SCH (09:00)
[2021-01-31] MEDS ORDERED: lisinopril 20 MG TAB PO SCH (09:00)
[2021-01-31] MEDS ORDERED: FERROUS GLUCONATE 324 MG TAB PO SCH (09:00)
--- NOTE | 2021-02-04 09:49 | Discharge Summary ---
Date of Service February 04, 2021 Admission HPI Per Admitting Provider Angus is a 70 year old male who complains of right knee pain, presents for pre-op evaluation prior to a right total knee replacement by Dr Fonseca at [facility]. he has complaints of pain, decreased range of motion and stiffness in his right knee. Currently the patient states that the symptoms are moderate-severe and rated as 7/10. The pain is described as aching, sharp and throbbing. His are aggravated by ascending stairs, daily activities, first steps while awake walking. Prior NSAIDs include IBU and Aleve. He has been treated with multiple visco injections as well as cortisone injections in the past without much relief. Admission Exam Per Admitting Provider Physical Exam: HT: 5ft 10in WT: 124kg BP: 142/60 Constitutional: WD/WN, vitals as above no acute distress Respiratory: normal respiratory effort, lungs clear to auscultation no respiratory distress, no labored breathing and does not use accessory muscles Cardiovascular: RRR, no murmur, no edema Gastrointestinal (Abdomen): normal bowel sounds, soft, nontender, no hepatosplenomegaly Musculoskeletal: Knee: + knee abnormal to inspection (RIGHT KNEE- ), + effus ion (+1 effusion), + limited ROM of knee (ROM 0/3/110), + knee ROM with crepitation, + joint line tenderness (medial joint line) and + Jeanna's sign positive; no deformity, no skin erythema, no ecchymosis, no valgus laxity, no varus laxity, anterior drawer test negative, Christy's sign negative and pivot shift test negative Principal Diagnosis Right Knee Osteoarthritis Discharge Data Allergies Allergy/AdvReac Type Severity Reaction Status Date / Time simvastatin Allergy Reaction Verified 01/30/21 07:25 unknown Procedures Performed Operation Date: 01/30/21 09:45 Actual Procedures p Right Total Knee Arthroplasty(Right) - Reymundo Fonseca DO Ordered Studies 01/30/21 05:00 US - OR guided needle placemen Routine Hospital Course (1) Arthritis of right knee: Date of Service January 31, 2021 Assessment & Plan (1) History of total right knee replacement: Plan: POD #1 s/p Right TKA pt/ot dvt proph with SHAQ/SCD/ASA plan for d/c home with home health PT Admission and Anticipated Discharge Date Admission Date: January 30, 2021 Subjective POD #1 s/p Right TKA Review of Systems Constitutional: no fever, no chills and no sweats Respiratory: no cough and no dyspnea Cardiovascular: no chest pain and no dyspnea Gastrointestinal: no abdominal pain, no nausea and no vomiting Physical Exam Physical Exam: Vital Signs Temp Pulse Pulse Resp BP BP Pulse Ox 01/31/21 03:07 36.8 C 61 17 142/63 H 96 01/30/21 22:18 37.0 C 57 L 17 109/69 95 01/30/21 19:32 36.8 C 57 L 17 125/68 96 01/30/21 18:00 36.7 C 58 L 18 117/67 97 01/30/21 17:10 50 L 18 141/69 H 97 01/30/21 16:10 59 L 16 121/71 96 01/30/21 15:10 54 L 18 121/61 98 01/30/21 14:40 58 L 18 119/82 97 01/30/21 14:10 46 L 18 130/70 97 01/30/21 13:40 36.5 C 52 L 16 125/70 97 01/30/21 13:30 63 18 125/68 98 01/30/21 13:20 56 L 14 120/71 98 01/30/21 13:11 36.2 C L 67 19 123/67 99 01/30/21 07:30 36.5 C 74 18 145/85 H 99 Intake and Output 01/30/21 01/30/21 01/31/21 14:59 22:59 06:59 Intake Total 1550 / 2202.5 652.5 / 2202.5 Output Total 30 / 870 540 / 870 300 / 870 Balance 1520 / 1332.5 112.5 / 1332.5 -300 / 1332.5 Intake: IV 100 / 272.5 172.5 / 272.5 Lactated Ringe r's 1,000 ml @ 15 0 / 0 mls/hr IV .Q24 H JOSEFINA Rx#: [id number] Tranexamic Aci d / 0.7% NaCl 1, 100 / 200 100 / 200 000 mg In 100 ml @ 600 mls/hr IV TODAY@0600 JOSEFINA Rx#:[id number] ceFAZolin 3000 MG 72.5 ml @ 130 72.5 / 72.5 mls/hr IV PREO P JOSEFINA Rx#: [id number] IV Perioperative 1450 / 1450 0 / 1450 Oral 480 / 480 Output: Urine 250 / 250 Estimated Blood Loss Drain Output 290 / 615 300 / 615 Right Knee 290 / 615 300 / 615 Other: # Unmeasured Voi ds 1 Weight 122.13 kg 122.13 kg Weight Measureme nt Method Standing Scale Patient Weight 01/31/21 06:59 Weight 122.13 kg Constitutional: WD/WN, vitals as above Musculoskeletal: Right Leg: NVDI, calf SNT, negative alea sign. DP palpabl e, able to wiggle toes/ankle movement without difficulty. dressing clean dry and intact. Results & Data ([facility]) Vital Signs (Past 12 Hours) Vital Signs Temp Pulse Resp BP Pulse Ox 01/31/21 03:07 36.8 C 61 17 142/63 H 96 01/30/21 22:18 37.0 C 57 L 17 109/69 95 01/30/21 19:32 36.8 C 57 L 17 125/68 96 Diagnostic Findings Impressions Knee X-Ray 01/30/21 13:13 XR knee RT 1 or 2V routine CLINICAL HISTORY: Postoperative evaluation. COMPARISON: None FINDINGS: Alignment of the total right knee arthroplasty is anatomic. There is no periprosthetic fracture or unexpected radiopaque foreign body. There is a bony excrescence of the medial metadiaphysis of the right tibia suggestive of an osteochondroma. Drains are in place. IMPRESSION: Expected findings following total right knee arthroplasty. Total Time Total Time Spent Total Time Spent (In Minutes): 5 Discharge Plan Discharge Items Patient Disposition: Home - Home Health Services Reason For Visit: Osteoarthritis Right Knee Discharge Diagnosis: Osteoarthritis right knee Activity: Per Instructions section Weightbearing Comment: As tolerated with walker Non-emergency contact: Surgeon Call non-emergency contact if: your pain is not controlled, your temperature is above 101.5, your wound has increased redness and your wound has increased drainage Follow-up/Referrals: [facility] [Outside] (Per surgeon's office) Mike Fabian MD [Primary Care Provider] - Reymundo Fonseca DO [Surgeon] - (Follow-up in 10 to 14 days from the day of your surgery for wound check) Diet: Regular Addtl Attending Provider Instructions: All of your medications have been prescribed and sent to your pharmacy. Medications will vary per patient but you will be sent home with a narcotic pain medication, Tylenol, aspirin, and possibly an antibiotic. Please call the office with any questions about your medications. Home health services will provide physical therapy and nursing care. ACTIVITY RECOMMENDATIONS: SELF CARE INSTRUCTIONS AFTER TOTAL KNEE REPLACEMENT A. You may need to continue a physical therapy program after discharge from the hospital. There are several options available to you. Your doctor will assist you in selecting the best one for you. 1. An out-patient facility 2 to 3 times a week for therapy or home therapy. 2. Continue working on all exercises taught to you in the hospital. Your goals should be to increase bending of your knee to 90 degrees and beyond and to fully straighten your knee. B. You may progress at your own pace from walking with a walker or crutches to a cane; then to no assistive devices. C. Make walking a part of your daily routine. Be up as much as comfortable with rest periods throughout the day. Rest with leg elevation is very important. Use the ice wrap frequently for the first 3-4 weeks. D. There are no restrictions on activities. You may ride in a car, shop, participate in wet roaster and all social activities. E. Wear the long elastic stockings (SHAQ hose) 20 hours a day for 2 weeks after surgery. They can be removed several times a day for laundering and for a bath. F. You may shower, no tub baths until cleared by your doctor. SPECIAL CARE INSTRUCTIONS: VERY IMPORTANT TO READ AND REVIEW A. There are a few signs you need to watch for after you are home. Call [facility] if you notice any of the followin. Increased severe knee pain. Some pain is expected especially when you exercise. 2. Increased swelling in your leg or knee; pain or swelling of the calf muscle in either lower leg. 3. Any fluid drainage from the incision. 4. Shortness of breath or chest pain. B. Please call [facility] at if you have any concerns or questions about your operation or recovery. The doctor or his nurse will return your call promptly. C. You must take antibiotics before dental work, bladder, bowel or other surgery. Your doctor will provide you with a permanent care to carry describing this precaution. IMPORTANT: * REMEMBER TO TAKE ASPIRIN, 81 MG, TWICE DAILY FOR 4 WEEKS UNLESS OTHERWISE DIRECTED. THIS IS YOUR BLOOD THINNER. * CALL IF INCREASED PAIN, REDNESS, DRAINAGE OR FEVER GREATER THAT 101. * WEAR SHAQ HOSE 20 HOURS PER DAY FOR 2 WEEKS. * DERMABOND Prineo- This is a mesh tape dressing that is covered with glue. It should remain in place until the incision is properly healed, usually 10-14 days. This dressing is designed to naturally slough off. You may trim the excess mesh tape as it peels off. Incision may be briefly wet in a shower. Dry immediately by blotting with a clean, dry towel. Do not bath or swim until instructed by your doctor. Do not scratch, rub, or pick at the dressing. Do not apply any topical ointments or lotions until dressing is completely removed and/or instructed by your doctor. There may be a small piece of suture material at one end of your incision. Do not pull or trim this. If it is bothersome or catching on clothing, you may cover it with a band-aid. . FOLLOW UP VISIT: If appointment is not already scheduled: Please call [facility] to make a follow-up appointment for 2 weeks after your surgery at . Pending Studies at Discharge: No Stand-Alone Forms: My [facility], Opioid Pain Management Medications and DC Order Prescriptions: New polyethylene glycol 3350 [Miralax] 17 gram powder in packet 17 g PO DAILY PRN (Reason: constipation) Qty: 5 RF: 0 aspirin [Ecotrin Low Strength] 81 mg tablet,delayed release (DR/EC) 81 mg PO BID 30 Days Qty: 60 RF: 0 acetaminophen 500 mg capsule 1,000 mg PO Q8H 14 Days Qty: 84 RF: 0 oxycodone 5 mg Tablet 5 mg PO Q4H MDD 6 PRN (Reason: pain) Qty: 30 RF: 0 Continued multivitamin [Daily Multi-Vitamin] tablet 1 tab PO DAILY Qty: 30 RF: 0 pyridoxine (vitamin B6) [Vitamin B-6] 100 mg tablet 100 mg PO DAILY Qty: 30 RF: 0 vitamin B complex [B Complex-Vitamin B12] tablet 1 tab PO DAILY Qty: 30 RF: 0 ipratropium bromide 42 mcg (0.06 %) spray,non-aerosol 2 spray intranasal BID Qty: 15 RF: 11 ferrous gluconate 236 mg (27 mg iron) tablet 236 mg PO DAILY RF: 0 potassium 99 mg tablet 99 mg PO DAILY RF: 0 amlodipine 5 mg tablet 5 mg PO QAM Qty: 90 RF: 1 lisinopril 20 mg tablet 20 mg PO QAM Qty: 90 RF: 1 Discontinued aspirin [Aspir-81] 81 mg tablet,delayed release (DR/EC) 81 mg PO DAILY Qty: 30 RF: 0 glucosamine sulfate [Glucosamine] 500 mg tablet 500 mg PO DAILY Qty: 30 RF: 0 omega-3 fatty acids [Fish Oil Concentrate] 1,000 mg capsule 1,000 mg PO DAILY Qty: 30 RF: 0 turmeric root extract 500 mg capsule 500 mg PO DAILY RF: 0 acetaminophen [Tylenol 8 Hour] 650 mg tablet extended release 650 mg PO Q8H PRN (Reason: pain) RF: 0 Discharge Orders: Discharge Order (Routine); Ordered 01/31/21 Ordered By: Mauro Cavazos/Other Patient Handouts: DVT Post Op Prevention Admission Data Admit Date/Time: 01/30/21 17:21 Attending Provider: Reymundo Fonseca Admit Provider: Reymundo Fonseca Primary Care Provider: Mike Fabian [facility] Other Interventions: Discharge Summary Assessment (RN) Last Done: 01/31/21 07:36
== END 2021-01-31 11:33 | disposition home health service (06) | DRG 470 ==
LOC: ASU 06:33 → 3E 17:21
DX: E78.5 Hyperlipidemia, unspecified; Z79.82 Long term (current) use of aspirin; Z79.899 Other long term (current) drug therapy; F17.220 Nicotine dependence, chewing tobacco, uncomplicated; R73.03 Prediabetes; Z01.812 Encounter for preprocedural laboratory examination; G47.33 Obstructive sleep apnea (adult) (pediatric); Z20.822 Contact with and (suspected) exposure to COVID-19; M17.11 Unilateral primary osteoarthritis, right knee; Z82.49 Family history of ischemic heart disease and other diseases of the circulatory system; I10 Essential (primary) hypertension; Z88.8 Allergy status to other drugs, medicaments and biological substances